=== PATIENT | male | born 1930 | race Caucasian/White ===

== ENCOUNTER 2017-04-26 20:08 | Inpatient (IN) | payer OTHER ==
[~2017-04-26] VITALS: Ht 182.9 cm; Wt 120.4 kg
[2017-04-26] MEDS ORDERED: GLIP5TAB3 PO (20:28)
[2017-04-26] MEDS ORDERED: SODIUM CHLORIDE 0.9% 1000ML 1,000 ML IV STA (20:28)
[2017-04-26] MEDS ORDERED: ACET-1311 PO (20:37)
[2017-04-26] MEDS ORDERED: LEVO1TAB33 PO (20:37)
[2017-04-26] MEDS ORDERED: SODIENE PR (20:37)
[2017-04-26] MEDS ORDERED: GLGKIT IM (20:37)
[2017-04-26] MEDS ORDERED: FURO-85 PO (20:37)
[2017-04-26] MEDS ORDERED: MOMLX PO (20:37)
[2017-04-26] MEDS ORDERED: FLM4 PO (20:37)
[2017-04-26] MEDS ORDERED: CARB25TA16 PO (20:37)
[2017-04-26] MEDS ORDERED: IPRASOL4 INH (20:37)
[2017-04-26] MEDS ORDERED: SIMV40TA2 PO (20:37)
[2017-04-26] MEDS ORDERED: OXYC-57 PO (20:37)
[2017-04-26] MEDS ORDERED: NVLG SQ (20:37)
--- NOTE | 2017-04-26 20:41 | DIAGNOSTIC IMAGING REPORT ---
CHEST ONE VIEW PORTABLE CLINICAL HISTORY: Sepsis COMPARISON STUDY: No previous studies for comparison. FINDINGS: The heart is enlarged. There is no overt failure. Increased basal markings are likely atelectatic. There is no lobar consolidation. There is no significant pleural fluid[ IMPRESSION: 1. Cardiomegaly 2. No evidence of failure 3. Bibasilar opacities likely atelectatic Electronically signed by: Moreno Huerta M.D. 04/26/2017 8:40 PM Dictated Date/Time: 04/26/2017 8:39 PM
[2017-04-26] MEDS ORDERED: PIPERACILLIN/TAZOBACTAM 4.5 GM/100ML D5W IV STA (20:50)
[2017-04-26] MEDS ORDERED: LEVAQUIN 750MG / 150ML D5W IV STA (20:50)
--- NOTE | 2017-04-26 20:54 | DIAGNOSTIC IMAGING REPORT ---
CT HEAD WITHOUT CONTRAST (CT) CLINICAL HISTORY: Acute change in mental status COMPARISON STUDY: No previous studies for comparison. TECHNIQUE: Axial CT of the brain is performed from the vertex to the skull base. IV contrast was not administered for this examination. CT DOSE: 5007.82 mGy.cm FINDINGS: No intra or extra-axial mass lesions are visualized. There is no CT evidence of acute cortical infarction. There is no evidence of midline shift. There is no acute hemorrhage. No calvarial fractures are visualized. There are minor white matter hypodensities likely on a small vessel basis. There is no evidence of pathologic ventricular dilatation. There is no evidence of acute sinusitis IMPRESSION: No acute intracranial findings Electronically signed by: Moreno Huerta M.D. 04/26/2017 8:53 PM Dictated Date/Time: 04/26/2017 8:52 PM
--- NOTE | 2017-04-26 21:04 | DIAGNOSTIC IMAGING REPORT ---
CT SCAN OF THE ABDOMEN AND PELVIS WITHOUT CONTRAST CLINICAL HISTORY: renal failure CHANGE IN MENTAL STATUS. PAIN. COMPARISON STUDY: No previous studies for comparison. TECHNIQUE: CT scan of the abdomen and pelvis was performed from the lung bases to the proximal femurs. Images are reviewed in the axial, sagittal, and coronal planes. IV contrast was not administered for this examination. CT DOSE: FINDINGS: Lower chest: There is respiratory motion artifact. There are bibasal airspace opacities, likely atelectatic although an inflammatory process could appear similar. Liver: The unenhanced liver is normal in size, contour, and attenuation. There is no intrahepatic biliary ductal dilatation. Gallbladder: Unremarkable. Spleen: Not visualized and presumed surgically absent Pancreas: Unremarkable. Adrenal glands: Unremarkable. Kidneys: The left kidney appears absent. There are tubular structures present within the left renal fossa. There is extensive right-sided perinephric stranding. There are multiple right renal cysts measuring up to 6.5 cm. There is right-sided hydronephrosis and hydroureter. There is right perinephric edema. No renal calculi are visualized. Bowel: There are no transition zones to indicate bowel obstruction. There is a left inguinal hernia containing colon. There is a supraumbilical ventral hernia containing a portion of transverse colon. Superior to this is a fat-containing ventral hernia. There is also an umbilical hernia containing a small portion of bowel. There is no acute diverticulitis. There is no evidence of acute appendicitis. Peritoneum: There is no intraperitoneal free air or abdominal ascites. Vasculature: The abdominal aorta is normal in course and caliber. Adenopathy: There is left para-aortic lymphadenopathy with nodes measuring up to 27 mm in diameter. There is also left common iliac adenopathy. Pelvic viscera: The bladder is moderately distended. The prostate is enlarged measuring 7 cm. Skeletal structures: There are advanced degenerative changes present within the spine. There are old rib fractures. IMPRESSION: 1. Bibasal airspace opacities, atelectatic versus inflammatory 2. Absent spleen and left kidney 3. Right-sided hydronephrosis. Right-sided hydroureter. Marked right-sided perinephric and periureteral stranding. 4. No renal, ureteral, or bladder calculi identified 5. Bladder distention. Marked prostate enlargement 6. Retroperitoneal lymphadenopathy 7. Multiple right renal cysts 8. Moderate to large left inguinal hernia containing colon. 9. Bowel containing ventral hernia. 10. No evidence of bowel obstruction. No evidence of free air 11. No evidence of acute diverticulitis. No evidence of acute appendicitis. Electronically signed by: Moreno Huerta M.D. 04/26/2017 9:03 PM Dictated Date/Time: 04/26/2017 8:53 PM
[2017-04-26 21:28] LABS: VEN BLD GAS O2 SATURATION < 60.0 %; VEN BLOOD GAS BASE EXCESS -2.2 mmol/L; VENOUS BLOOD GAS PCO2 48 mmHg (38.0-50.0); VENOUS BLOOD GAS PO2 30 mmHg
[2017-04-26 21:32] LABS: BASO % 0.3 %; BASO ABS # 0.04 K/uL (0-0.2); COMPLETE YES; EOS % 3.9 %; IG% 0.7 %; LYMPH % 15.7 %; LYMPH ABS # 2.49 K/uL (1.2-3.4); MEAN CORPUSCULAR HEMOGLOBIN 33.7 pg (25-34); MEAN CORPUSCULAR HGB CONC 33.7 g/dl (32-36); MEAN PLATELET VOLUME 9.7 fL (7.4-10.4); MONO % 13.8 %; NEUT % 65.6 %; PLATELET COUNT 520 K/uL (130-400); WHITE BLOOD COUNT 15.82 K/uL (4.8-10.8)
[2017-04-26 21:44] LABS: URINE APPEARANCE TURBID (CLEAR); URINE BILIRUBIN NEG (NEG); URINE COLOR YELLOW; URINE EPITHELIAL CELL AUTO >30 /lpf (0-5); URINE NITRITE NEG (NEG); UROBILINOGEN NEG (NEG); ZZURINE CULT IF INDIC CATH YES
[2017-04-26 21:54] LABS: CALCIUM 8.6 mg/dl (8.5-10.1)
[2017-04-26 21:55] LABS: MANUAL MICROSCOPIC REQUIRED? NO; REVIEW REQ? YES
[2017-04-26 22:02] LABS: ALB/GLOB RATIO 0.4 (0.9-2); ALKALINE PHOSPHATASE 213 U/L (45-117); ALT/SGPT 9 U/L (12-78); AST/SGOT 28 U/L (15-37); BLOOD UREA NITROGEN 90 mg/dl (7-18); BUN/CREATININE RATIO 9.5 (10-20); CARBON DIOXIDE 24 mmol/L (21-32); CHLORIDE 101 mmol/L (98-107); GLUCOSE 125 mg/dl (70-99); MAGNESIUM 3.2 mg/dl (1.8-2.4); PHOSPHORUS 7.7 mg/dl (2.5-4.9); POTASSIUM 5.3 mmol/L (3.5-5.1); SODIUM 136 mmol/L (136-145)
[2017-04-26 22:13] LABS: URINE PATH CASTS 0-3 GRANULAR CASTS /lpf (0)
--- NOTE | 2017-04-26 22:13 | EMERGENCY ROOM VISIT NOTE ---
History Report prepared by Evangelista: Tomy Calderon Under the Supervision of: Dr. Reilly Alfonso D.O. First contact with patient: 20:10 Stated Complaint: KIDNEY FAILURE History of Present Illness The patient is a 87 year old male who presents to the Emergency Room by EMS with complaints of an altered mental status beginning today. He is a resident at [facility]. He had a chest x-ray today which showed pneumonia. He also notes that he has a broken rib. The patient also had blood work drawn today which showed kidney failure. Per EMS, the patient is oriented, but falls asleep very easily. The patient denies any nausea, chest pain, abdominal pain, or SOB. HPI limited secondary to altered mental status. Source of History: patient, EMS History Limited By: AMS Onset: Today Quality: other (altered mental status) Associated Symptoms: No chest pain, No SOB, No nausea, No abdominal pain Review of Systems ROS limited secondary to altered mental status. Past Medical & Surgical Medical Problems: (1) Aortic stenosis (2) ARF (acute renal failure) (3) CAD (coronary artery disease) (4) Diabetes (5) Heart failure (6) Major depressive disorder (7) Myocardial infarction (8) Paraplegia (9) Parkinson disease (10) Urinary retention Family History Unobtainable secondary to altered mental status. Social History Housing Status: assisted living ([facility]) Current/Historical Medications Scheduled Carbidopa/Levodopa (Sinemet Cr 25MG/100MG), 0.5 TAB PO BID Furosemide (Lasix), 20 MG PO BID Glipizide (Glucotrol), 5 MG PO DAILY Insulin Aspart (Novolog), 10 UNITS SQ BID Levofloxacin (Levaquin), 500 MG PO DAILY Simvastatin (Zocor), 40 MG PO QPM Tamsulosin HCl (Tamsulosin HCl), 0.4 MG PO DAILY Scheduled PRN Acetaminophen (Tylenol), 650 MG PO Q6 PRN for Pain Glucagon (Glucagon Emergency Kit), 1 DOSE IM DIRECTED PRN for HYPOGLYCEMIA PROTOCOL Ipratropium-Albuterol (Duoneb), 1 TREATMENT INH Q6 PRN for Shortness of Breath Magnesium Hydroxide (Milk of Magnesia), 30 ML PO DIRECTED PRN for Constipation Oxycodone/Acetaminophen 5MG/325MG (Percocet 5MG/325MG), 1 TABLET PO Q6H PRN for Pain Sodium Phosphate/Biphosphate (Fleet Enema), 1 EA SD DAILY PRN for Constipation Allergies Coded Allergies: No Known Allergies (Unverified , 04/26/17) Physical Exam Vital Signs Date Time Temp Pulse Resp B/P (MAP) Pulse Ox O2 Delivery O2 Flow Rate FiO2 04/26/17 22:26 95 Nasal Cannula 4.0 04/26/17 22:08 82 22 95 04/26/17 22:01 146/75 04/26/17 21:38 78 22 90 04/26/17 21:08 78 22 93 04/26/17 21:01 91/72 04/26/17 20:56 81 04/26/17 20:54 116/67 04/26/17 20:29 36.4 75 20 117/76 92 Nasal Cannula 4.0 04/26/17 20:29 92 Nasal Cannula 4.0 Physical Exam GENERAL: Patient is listless and slow to respond to questions. Answers questions appropriately and follows commands slowly. EYES: Bilateral conjunctival injection with thin exudate noted. PERRL. EARS, NOSE, MOUTH AND THROAT: The nose is without any evidence of any deformity. Mucous membranes are dry tongue is midline NECK: The neck is nontender and supple. RESPIRATORY: Shallow respirations noted. Poor air movement noted throughout. Expiratory wheezing in both upper lung dukes. CARDIOVASCULAR: Distant but regular rate and rhythm noted to auscultation. No definite murmur appreciated to auscultation. GASTROINTESTINAL: The abdomen is mildly distended but soft. No specific tenderness, guarding or rigidity. BACK: No midline tenderness or or step-off noted range of motion in flexion extension as well as rotation no signs of muscle spasm noted MUSCULOSKELETAL/EXTREMITIES: There is no evidence of gross deformity full range of motion is noted in the hips and shoulders. Pedal edema bilaterally. SKIN: There is no obvious evidence of any rash. There are no petechiae, pallor or cyanosis noted. NEUROLOGIC: Patient is oriented to person, place, but not time or situation. Medical Decision & Procedures ER Provider Diagnostic Interpretation: Radiology results as stated below per my review and radiologist interpretation: CT HEAD WITHOUT CONTRAST (CT) FINDINGS: No intra or extra-axial mass lesions are visualized. There is no CT evidence of acute cortical infarction. There is no evidence of midline shift. There is no acute hemorrhage. No calvarial fractures are visualized. There are minor white matter hypodensities likely on a small vessel basis. There is no evidence of pathologic ventricular dilatation. There is no evidence of acute sinusitis IMPRESSION: No acute intracranial findings Electronically signed by: Moreno Huerta M.D. CT SCAN OF THE ABDOMEN AND PELVIS WITHOUT CONTRAST FINDINGS: Lower chest: There is respiratory motion artifact. There are bibasal airspace opacities, likely atelectatic although an inflammatory process could appear similar. Liver: The unenhanced liver is normal in size, contour, and attenuation. There is no intrahepatic biliary ductal dilatation. Gallbladder: Unremarkable. Spleen: Not visualized and presumed surgically absent Pancreas: Unremarkable. Adrenal glands: Unremarkable. Kidneys: The left kidney appears absent. There are tubular structures present within the left renal fossa. There is extensive right-sided perinephric stranding. There are multiple right renal cysts measuring up to 6.5 cm. There is right-sided hydronephrosis and hydroureter. There is right perinephric edema. No renal calculi are visualized. Bowel: There are no transition zones to indicate bowel obstruction. There is a left inguinal hernia containing colon. There is a supraumbilical ventral hernia containing a portion of transverse colon. Superior to this is a fat-containing ventral hernia. There is also an umbilical hernia containing a small portion of bowel. There is no acute diverticulitis. There is no evidence of acute appendicitis. Peritoneum: There is no intraperitoneal free air or abdominal ascites. Vasculature: The abdominal aorta is normal in course and caliber. Adenopathy: There is left para-aortic lymphadenopathy with nodes measuring up to 27 mm in diameter. There is also left common iliac adenopathy. Pelvic viscera: The bladder is moderately distended. The prostate is enlarged measuring 7 cm. Skeletal structures: There are advanced degenerative changes present within the spine. There are old rib fractures. IMPRESSION: 1. Bibasal airspace opacities, atelectatic versus inflammatory 2. Absent spleen and left kidney 3. Right-sided hydronephrosis. Right-sided hydroureter. Marked right-sided perinephric and periureteral stranding. 4. No renal, ureteral, or bladder calculi identified 5. Bladder distention. Marked prostate enlargement 6. Retroperitoneal lymphadenopathy 7. Multiple right renal cysts 8. Moderate to large left inguinal hernia containing colon. 9. Bowel containing ventral hernia. 10. No evidence of bowel obstruction. No evidence of free air 11. No evidence of acute diverticulitis. No evidence of acute appendicitis. Electronically signed by: Moreno Huerta M.D. CHEST ONE VIEW PORTABLE FINDINGS: The heart is enlarged. There is no overt failure. Increased basal markings are likely atelectatic. There is no lobar consolidation. There is no significant pleural fluid[ IMPRESSION: 1. Cardiomegaly 2. No evidence of failure 3. Bibasilar opacities likely atelectatic Electronically signed by: Moreno Huerta M.D. Laboratory Results 04/26/17 21:00 Red Blood Count 3.50, Mean Corpuscular Volume 100.0, Mean Corpuscular Hemoglobin 33.7, Mean Corpuscular Hemoglobin Concent 33.7, Mean Platelet Volume 9.7, Neutrophils (%) (Auto) 65.6, Lymphocytes (%) (Auto) 15.7, Monocytes (%) ( Auto) 13.8, Eosinophils (%) (Auto) 3.9, Basophils (%) (Auto) 0.3, Neutrophils # (Auto) 10.38, Lymphocytes # (Auto) 2.49, Monocytes # (Auto) 2.18, Eosinophils # (Auto) 0.62, Basophils # (Auto) 0.04 Test 04/26/17 00:00 04/26/17 20:17 04/26/17 21:00 04/26/17 21:05 Urine Opiates Screen NEG (NEG) Urine Methadone, Qualitative NEG (NEG) Urine Barbiturates NEG (NEG) Urine Phencyclidine (PCP) Level NEG (NEG) Ur Amphetamine/Methamphetamine NEG (NEG) MDMA (Ecstasy) Screen POS (NEG) Urine Benzodiazepines Screen NEG (NEG) Urine Cocaine Metabolite NEG (NEG) Urine Marijuana (THC) NEG (NEG) Bedside Glucose 168 mg/dl (70-99) White Blood Count 15.82 K/uL (4.8-10.8) Red Blood Count 3.50 M/uL (4.7-6.1) Hemoglobin 11.8 g/dL (14.0-18.0) Hematocrit 35.0 % (42-52) Mean Corpuscular Volume 100.0 fL (80-100) Mean Corpuscular Hemoglobin 33.7 pg (25-34) Mean Corpuscular Hemoglobin Concent 33.7 g/dl (32-36) Platelet Count 520 K/uL (130-400) Mean Platelet Volume 9.7 fL (7.4-10.4) Neutrophils (%) (Auto) 65.6 % Lymphocytes (%) (Auto) 15.7 % Monocytes (%) (Auto) 13.8 % Eosinophils (%) (Auto) 3.9 % Basophils (%) (Auto) 0.3 % Neutrophils # (Auto) 10.38 K/uL (1.4-6.5) Lymphocytes # (Auto) 2.49 K/uL (1.2-3.4) Monocytes # (Auto) 2.18 K/uL (0.11-0.59) Eosinophils # (Auto) 0.62 K/uL (0-0.5) Basophils # (Auto) 0.04 K/uL (0-0.2) RDW Standard Deviation 50.2 fL (36.4-46.3) RDW Coefficient of Variation 13.8 % (11.5-14.5) Immature Granulocyte % (Auto) 0.7 % Immature Granulocyte # (Auto) 0.11 K/uL (0.00-0.02) Erythrocyte Sedimentation Rate > 90 mm/hr (0-14) Est Creatinine Clear Calc Drug Dose 7.9 ml/min Phosphorus Level 7.7 mg/dl (2.5-4.9) Magnesium Level 3.2 mg/dl (1.8-2.4) Total Bilirubin 0.4 mg/dl (0.2-1) Aspartate Amino Transf (AST/SGOT) 28 U/L (15-37) Alanine Aminotransferase (ALT/SGPT) 9 U/L (12-78) Alkaline Phosphatase 213 U/L (45-117) Total Creatine Kinase 127 U/L (39-308) Creatine Kinase MB 2.6 ng/ml (0.5-3.6) Creatine Kinase MB Ratio 2.0 (0-3.0) Troponin I < 0.015 ng/ml (0-0.045) C-Reactive Protein 21.00 mg/dl (0-0.29) Pro-B-Type Natriuretic Peptide 1269 pg/ml (0-1800) Total Protein 7.4 gm/dl (6.4-8.2) Albumin 2.1 gm/dl (3.4-5.0) Globulin 5.3 gm/dl (2.5-4.0) Albumin/Globulin Ratio 0.4 (0.9-2) Lipase 81 U/L (73-393) Urine Color YELLOW Urine Appearance TURBID (CLEAR) Urine pH 5.0 (4.5-7.5) Urine Specific [place] 1.020 (1.000-1.030) Urine Protein 3+ (NEG) Urine Glucose (UA) NEG (NEG) Urine Ketones NEG (NEG) Urine Occult Blood 2+ (NEG) Urine Nitrite NEG (NEG) Urine Bilirubin NEG (NEG) Urine Urobilinogen NEG (NEG) Urine Leukocyte Esterase TRACE (NEG) Urine WBC (Auto) 5-10 /hpf (0-5) Urine RBC (Auto) 5-10 /hpf (0-4) Urine Hyaline Casts (Auto) 1-5 /lpf (0-5) Urine Epithelial Cells (Auto) >30 /lpf (0-5) Urine Bacteria (Auto) NEG (NEG) Urine Renal Epithelial Cells 0-5 /lpf (0-5) Urine Pathogenic Casts 0-3 GRANULAR CASTS /lpf (0) Urine Yeast (Auto) (NONE PRSENT) Test 04/26/17 21:08 04/26/17 21:14 04/26/17 21:52 Bedside Lactic Acid Venous 1.84 mmol/L (0.90-1.70) Venous Blood pH 7.32 (7.36-7.41) Venous Blood Partial Pressure CO2 48 mmHg (38.0-50.0) Venous Blood Partial Pressure O2 30 mmHg Venous Blood HCO3 24 mmol/L Venous Blood Oxygen Saturation < 60.0 % Venous Blood Base Excess -2.2 mmol/L Prothrombin Time 38.8 SECONDS (9.0-12.0) Prothromb Time International Ratio 3.4 (0.9-1.1) Activated Partial Thromboplast Time 162.0 SECONDS (21.0-31.0) Partial Thromboplastin Ratio 6.2 Ammonia 17.0 umol/L (11-32) Laboratory results per my review. Medications Administered Medications (Trade) Dose Ordered Sig/Yoan Route Start Time Stop Time Status Last Admin Dose Admin Sodium Chloride 1,000 ml @ 999 mls/hr Q1H1M STAT IV 04/26/17 20:28 04/26/17 21:28 DC 6/21/17 21:18 999 MLS/HR Piperacillin Sod/ Tazobactam Sod (Zosyn Iv) 4.5 gm NOW STAT IV 04/26/17 20:50 04/26/17 20:52 DC 04/26/17 21:18 4.5 GM Levofloxacin (Levaquin / D5W) 750 mg NOW STAT IV 04/26/17 20:50 04/26/17 20:52 DC 04/26/17 21:18 750 MG ECG Indication: altered mental status Rate (beats per minute): 76 Rhythm: normal sinus Findings: RBBB, other (No PVC. ) Comparison ECG Date: May 19, 2016 Change: Changes are new. ED Course 2009: The patient was evaluated in room A9. A complete history and physical examination were performed. 2027: Ordered NSS 1,000 ml @ 999 mls/hr IV 2042: I reassessed the patient. His son has arrived. He explained that the patient received his chest x-ray and laboratory work at [place], and was transferred to the [facility], but then asked to be discharged. The patient returned to [facility], upon which his symptoms began worsening. 2049: Ordered Zosyn 4.5 gm IV, Levaquin / D5w 750 mg IV. 2199: Upon reevaluation, the patient is resting comfortably. I discussed results and treatment plan with him and his family. They verbalize agreement and understanding. I spoke with Dr. Wilks of the [facility]. The patient will be evaluated for further management and care. Medical Decision Differential diagnosis: Etiologies such as metabolic, infection, hypoglycemia, electrolyte abnormalities , cardiac sources, intracerebral event, toxicologic, neurologic, as well as others were entertained. Blood pressure screening: Patient was found to have normal blood pressure on screening and does not require follow-up. Medication Reconciliation: I attest that I have personally reviewed the patient' s current medications list. The patient is an 87-year-old male who presented to the emergency department from [facility] for an evaluation of abnormal labs. The patient was recently admitted to [facility] last Monday and his had a decline in his mental status ever since that time. The patient started at [facility] and was transferred to [facility] for renal failure. At that time he did not wish to have dialysis. I discussed his laboratory radiographic studies with his son. At this time the patient appears to be in urinary retention causing obstructive uropathy. He has only one kidney. He was treated with a Kaba catheter as well as IV antibiotics in the emergency department. The patient was also treated with IV fluids. I discussed his case with the on-call [facility] hospitalist. They've agreed to evaluate the patient in the emergency department for further management and disposition. The patient's potassium level improved with IV fluids. His EKG did show a new right bundle-branch block pattern but it did not look like a classic dysrhythmia associated with hyperkalemia so only IV fluids were given to treat the patient's renal failure at this time. Discussing further management with the family members it sounds as though the patient would not wish to have dialysis. It sounds as though the patient would not want to be intubated as well so IV fluids were given in a nonaggressive fashion to try to not have the patient go into pulmonary edema. The patient was evaluated multiple times. Consults Time Called: [id number] Consulting Physician: Dr. Wilks -[facility] Returned Call: [phone] I discussed the patient's case with Dr. Wilks. The patient will be evaluated for further management. Impression Primary Impression: Acute renal failure Additional Impressions: Altered mental status Obstructive uropathy Hydronephrosis UTI (urinary tract infection) Hypoxia Critical Care I have personally spent greater than 35 minutes of critical care time in the direct management of this patient. This includes bedside care, interpretation of diagnostic studies, and testing, discussion with consultants, patient, and family members, and other required patient management activities. This 35 minutes is in excess of all separately billable procedures. Scribe Attestation The scribe's documentation has been prepared under my direction and personally reviewed by me in its entirety. I confirm that the note above accurately reflects all work, treatment, procedures, and medical decision making performed by me. Departure Information Dispostion Being Evaluated By Hospitalist Problem Qualifiers Primary Impression: Acute renal failure Acute renal failure type: unspecified Qualified Codes: N17.9 - Acute kidney failure, unspecified Additional Impressions: Altered mental status Altered mental status type: unspecified Qualified Codes: R41.82 - Altered mental status, unspecified Hydronephrosis Hydronephrosis type: unspecified Qualified Codes: N13.30 - Unspecified hydronephrosis UTI (urinary tract infection) Urinary tract infection type: site unspecified Hematuria presence: with hematuria Qualified Codes: N39.0 - Urinary tract infection, site not specified ; R31.9 - Hematuria, unspecified
[2017-04-26] MEDS ORDERED: POLYETHYLENE (MIRALAX) 17 GM PACK PO PRN (22:15)
[2017-04-26] MEDS ORDERED: ALBUT/IPRATROP 3MG/0.5MG NEB 3 ML VIAL INH PRN (22:15)
[2017-04-26] MEDS ORDERED: SODIUM CHLORIDE 0.9% 1000ML 1,000 ML IV SCH (22:15)
[2017-04-26] MEDS ORDERED: OXYCODONE HCL IR 5 MG TAB (IMMEDIATE RELEASE) PO PRN (22:15)
[2017-04-26] MEDS ORDERED: ACETAMINOPHEN 325 MG TAB PO PRN (22:15)
[2017-04-26 22:26] VITALS: O2SAT 95; BMI 38.0
[2017-04-26 22:35] LABS: INR 3.4 (0.9-1.1); PARTIAL THROMBOPLASTIN RATIO 6.2; PROTHROMBIN TIME (PATIENT) 38.8 SECONDS (9.0-12.0)
[2017-04-26 22:36] LABS: BENZODIAZEPINE, URINE NEG (NEG); COCAINE,URINE NEG (NEG); PHENCYCLIDINE, URINE NEG (NEG)
[2017-04-26 23:20] VITALS: BP 133/70; PULSE 88; TEMP 37; O2SAT 93
[2017-04-27] VITALS (9 sets, daily range): BP systolic 116–139; BP diastolic 62–82; PULSE 82–93; TEMP 36.5–37.6; O2SAT 91–96
--- NOTE | 2017-04-27 00:02 | History and Physical ---
History & Physical Date & Time of Service: Apr 26, 2017 at 23:04 Chief Complaint: Kidney Failure Primary Care Physician: Olga Valentin PA-C History of Present Illness Source: family, hospital records, residential, other 87 y/o M Hx Parkinson's, CKD, CHF, CAD, dementia, splenectomy, paraplegia, morbid obesity, aortic stenosis. Pt was recently admitted to [facility] due to a fall , rib fracture, UTI and acute on chronic RF. He was then transferred to [facility] for rehab. He presents today due to increasing confusion, seemingly labored breathing and oliguria. On arrival to the ER a bladder scan revealed [address] abdomen was notable for R hydronephrosis, hydroureter, perinephric and periureteral stranding and possibly b/l lower lobe infiltrates. Labs are notable for leukocytosis and a creatinine > 9.0. He is unable to voice any complaints or contribute to the HPI. His son's are at bedside to provide the above information and have confirmed that the pt is exhibiting functional decline. the pt is DNR status and family are not presently interested in pursuing dialysis if needed. 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 11) Morbid obesity 12) Rib fractures 13) CKD 14) CAD/[place] 15) Chronic anemia Family History Noncontributory due to pt age Social History Care dependent - recently - nonsmoker - does not drink alcohol - former chairez Smoking Status: Never Smoker Allergies Coded Allergies: No Known Allergies (Unverified , 04/26/17) Home Medications Scheduled Carbidopa/Levodopa (Sinemet Cr 25MG/100MG), 0.5 TAB PO BID Furosemide (Lasix), 20 MG PO BID Glipizide (Glucotrol), 5 MG PO DAILY Insulin Aspart (Novolog), 10 UNITS SQ BID Levofloxacin (Levaquin), 500 MG PO DAILY Simvastatin (Zocor), 40 MG PO QPM Tamsulosin HCl (Tamsulosin HCl), 0.4 MG PO DAILY Scheduled PRN Acetaminophen (Tylenol), 650 MG PO Q6 PRN for Pain Glucagon (Glucagon Emergency Kit), 1 DOSE IM DIRECTED PRN for HYPOGLYCEMIA PROTOCOL Ipratropium-Albuterol (Duoneb), 1 TREATMENT INH Q6 PRN for Shortness of Breath Magnesium Hydroxide (Milk of Magnesia), 30 ML PO DIRECTED PRN for Constipation Oxycodone/Acetaminophen 5MG/325MG (Percocet 5MG/325MG), 1 TABLET PO Q6H PRN for Pain Sodium Phosphate/Biphosphate (Fleet Enema), 1 EA ND DAILY PRN for Constipation Review of Systems Cannot obtain Physical Exam Vital Signs Date Time Temp Pulse Resp B/P (MAP) Pulse Ox O2 Delivery O2 Flow Rate FiO2 04/26/17 22:26 95 Nasal Cannula 4.0 04/26/17 22:08 82 22 95 04/26/17 22:01 146/75 04/26/17 21:38 78 22 90 04/26/17 21:08 78 22 93 04/26/17 21:01 91/72 04/26/17 20:56 81 04/26/17 20:54 116/67 04/26/17 20:29 36.4 75 20 117/76 92 Nasal Cannula 4.0 04/26/17 20:29 92 Nasal Cannula 4.0 General Appearance: + pertinent finding (Confused, elderly, overweight male - labored breathing - appears uncomfortable) Head: normocephalic, atraumatic Eyes: normal inspection, PERRL, EOMI ENT: normal ENT inspection, pharynx normal, + pertinent finding (Dry mucosal membranes) Neck: supple, + JVD Respiratory/Chest: + decreased breath sounds, + accessory muscle use, + pertinent finding (limmited exam due to shallow resps and habitus - tenderness over chest wall) Cardiovascular: regular rate, rhythm, + systolic murmur Abdomen/GI: normal bowel sounds, + tenderness (diffuse abdominal tenderness with mild distention and a palpable central hernia) Back: + left CVA tenderness, + right CVA tenderness Extremities/Musculoskelatal: no calf tenderness, + pedal edema Neurologic/Psych: + disoriented, + pertinent finding (No overt deficits - cannot comply with exam) Skin: no rash, + pallor Diagnostics Laboratory Results Results Past 24 Hours Test 04/26/17 00:00 04/26/17 20:17 04/26/17 21:00 04/26/17 21:05 Range/Units Urine Opiates Screen NEG NEG Urine Methadone, Qualitative NEG NEG Urine Barbiturates NEG NEG Urine Phencyclidine (PCP) Level NEG NEG Ur Amphetamine/Methamphetamine NEG NEG MDMA (Ecstasy) Screen POS NEG Urine Benzodiazepines Screen NEG NEG Urine Cocaine Metabolite NEG NEG Urine Marijuana (THC) NEG NEG Bedside Glucose 168 70-99 mg/dl White Blood Count 15.82 4.8-10.8 K/uL Red Blood Count 3.50 4.7-6.1 M/uL Hemoglobin 11.8 14.0-18.0 g/dL Hematocrit 35.0 42-52 % Mean Corpuscular Volume 100.0 80-100 fL Mean Corpuscular Hemoglobin 33.7 25-34 pg Mean Corpuscular Hemoglobin Concent 33.7 32-36 g/dl Platelet Count 520 130-400 K/uL Mean Platelet Volume 9.7 7.4-10.4 fL Neutrophils (%) (Auto) 65.6 % Lymphocytes (%) (Auto) 15.7 % Monocytes (%) (Auto) 13.8 % Eosinophils (%) (Auto) 3.9 % Basophils (%) (Auto) 0.3 % Neutrophils # (Auto) 10.38 1.4-6.5 K/uL Lymphocytes # (Auto) 2.49 1.2-3.4 K/uL Monocytes # (Auto) 2.18 0.11-0.59 K/uL Eosinophils # (Auto) 0.62 0-0.5 K/uL Basophils # (Auto) 0.04 0-0.2 K/uL RDW Standard Deviation 50.2 36.4-46.3 fL RDW Coefficient of Variation 13.8 11.5-14.5 % Immature Granulocyte % (Auto) 0.7 % Immature Granulocyte # (Auto) 0.11 0.00-0.02 K/uL Erythrocyte Sedimentation Rate > 90 0-14 mm/hr Sodium Level 136 136-145 mmol/L Potassium Level 5.3 3.5-5.1 mmol/L Chloride Level 101 98-107 mmol/L Carbon Dioxide Level 24 21-32 mmol/L Anion Gap 11.0 3-11 mmol/L Blood Urea Nitrogen 90 7-18 mg/dl Creatinine 9.40 0.60-1.40 mg/dl Est Creatinine Clear Calc Drug Dose 7.9 ml/min Estimated GFR () 5.3 Estimated GFR (Non- 4.6 BUN/Creatinine Ratio 9.5 10-20 Random Glucose 125 70-99 mg/dl Calcium Level 8.6 8.5-10.1 mg/dl Phosphorus Level 7.7 2.5-4.9 mg/dl Magnesium Level 3.2 1.8-2.4 mg/dl Total Bilirubin 0.4 0.2-1 mg/dl Aspartate Amino Transf (AST/SGOT) 28 15-37 U/L Alanine Aminotransferase (ALT/SGPT) 9 12-78 U/L Alkaline Phosphatase 213 45-117 U/L Total Creatine Kinase 127 39-308 U/L Creatine Kinase MB 2.6 0.5-3.6 ng/ml Creatine Kinase MB Ratio 2.0 0-3.0 Troponin I < 0.015 0-0.045 ng/ml C-Reactive Protein 21.00 0-0.29 mg/dl Pro-B-Type Natriuretic Peptide 1269 0-1800 pg/ml Total Protein 7.4 6.4-8.2 gm/dl Albumin 2.1 3.4-5.0 gm/dl Globulin 5.3 2.5-4.0 gm/dl Albumin/Globulin Ratio 0.4 0.9-2 Lipase 81 73-393 U/L Urine Color YELLOW Urine Appearance TURBID CLEAR Urine pH 5.0 4.5-7.5 Urine Specific Cal[place]oun 1.020 1.000-1.030 Urine Protein 3+ NEG Urine Glucose (UA) NEG NEG Urine Ketones NEG NEG Urine Occult Blood 2+ NEG Urine Nitrite NEG NEG Urine Bilirubin NEG NEG Urine Urobilinogen NEG NEG Urine Leukocyte Esterase TRACE NEG Urine WBC (Auto) 5-10 0-5 /hpf Urine RBC (Auto) 5-10 0-4 /hpf Urine Hyaline Casts (Auto) 1-5 0-5 /lpf Urine Epithelial Cells (Auto) >30 0-5 /lpf Urine Bacteria (Auto) NEG NEG Urine Renal Epithelial Cells 0-5 0-5 /lpf Urine Pathogenic Casts 0-3 GRANULAR CASTS 0 /lpf Urine Yeast (Auto) NONE PRSENT Test 04/26/17 21:08 04/26/17 21:14 04/26/17 21:52 04/26/17 23:00 Range/Units Bedside Lactic Acid Venous 1.84 0.90-1.70 mmol/L Venous Blood pH 7.32 7.36-7.41 Venous Blood Partial Pressure CO2 48 38.0-50.0 mmHg Venous Blood Partial Pressure O2 30 mmHg Venous Blood HCO3 24 mmol/L Venous Blood Oxygen Saturation < 60.0 % Venous Blood Base Excess -2.2 mmol/L Prothrombin Time 38.8 9.0-12.0 SECONDS Prothromb Time International Ratio 3.4 0.9-1.1 Activated Partial Thromboplast Time 162.0 21.0-31.0 SECONDS Partial Thromboplastin Ratio 6.2 Ammonia 17.0 11-32 umol/L Microbiology Results 04/26/17 Blood Culture, Received Pending 04/26/17 Blood Culture, Received Pending 04/26/17 Urine Culture, Received Pending Diagnostic Radiology IMPRESSION: 1. Bibasal airspace opacities, atelectatic versus inflammatory 2. Absent spleen and left kidney 3. Right-sided hydronephrosis. Right-sided hydroureter. Marked right-sided perinephric and periureteral stranding. 4. No renal, ureteral, or bladder calculi identified 5. Bladder distention. Marked prostate enlargement 6. Retroperitoneal lymphadenopathy 7. Multiple right renal cysts 8. Moderate to large left inguinal hernia containing colon. 9. Bowel containing ventral hernia. 10. No evidence of bowel obstruction. No evidence of free air 11. No evidence of acute diverticulitis. No evidence of acute appendicitis. EKG Sinus , 80 BPM, RBBB - no evidence of acute ischemia Impression Assessment and Plan 87 y/o M Hx Parkinson's, CKD, CHF, CAD, dementia, splenectomy, paraplegia, morbid obesity, aortic stenosis, DM. Pt was recently admitted to [facility] due to a fall, rib fracture, UTI and acute on chronic RF. He was then transferred to [facility] for rehab. He presents today due to increasing confusion, seemingly labored breathing and oliguria. On arrival to the ER a bladder scan revealed [address] abdomen was notable for R hydronephrosis, hydroureter, perinephric and periureteral stranding and possibly b/l lower lobe infiltrates. Labs are notable for leukocytosis and a creatinine > 9.0. He is unable to voice any complaints or contribute to the HPI. His son's are at bedside to provide the above information and have confirmed that the pt is exhibiting functional decline. 1) AMS - multifactorial - due to likely infection, underlying dementia, ARF/ uremia/metabolic encephalopathy- addressed individually 2) ARF - metabolic encephalopathy - acute on chronic failure due to obstructive uropathy. Pt has R hydronephrosis and hydroureter. Kaba placed, pt receiving gentle hydration although it is unclear if he will be able to tolerate sufficient fluid resuscitation without volume overload. I have made the family aware of the above. They do not wish to pursue dialysis so that we will continue with IVF at a low rate and recheck the pts BMP/ electrolytes periodically. If he becomes excessively SOB we can employ breathing treatments, NTG and Lasix and if ineffective, I have discussed the use of narcotics with family to treat the pt symptomatically. 3) UTI - possible PNM - as the pt is asplenic and was being treated with Levaquin for a UTI at [facility], we will start Zosyn and Zithromax pending culture results. He does not meet septic criteria currently. 4) CHF - we do not have a current echo - as above this creates some difficulty with fluid resuscitation which the family are aware of. His daily Lasix is presently held. He does not normally take a B thomas or an YANETH. 5) CAD - No evidence of ACS - cont Statin and ASA 6) DM - placed on SS DNR/DNI - no dialysis - Heparin prophylaxis Total time for this admit including review of labs, meds, outside records, EKG - discussion with pt's family and ER attending - 50 min Advanced Directives Existing Living Will: Yes Existing Power of Senior Sales Administrator: Yes (ROXANNE SON ) VTE Prophylaxis VTE Risk Assessment Done? Y/N: Yes Risk Level: Moderate
[2017-04-27] MEDS ORDERED: ALBUTEROL 0.083% NEBU SOLN 3 ML VIAL INH PRN (00:15)
[2017-04-27 00:25] LABS: BUN/CREATININE RATIO 10.8 (10-20); CALCIUM 8.2 mg/dl (8.5-10.1); CREATININE 8.1 mg/dl (0.60-1.40); POTASSIUM 5.2 mmol/L (3.5-5.1)
[2017-04-27] MEDS ORDERED: GLUCOSE 10 TABS/TUBE PO PRN (01:00)
[2017-04-27] MEDS ORDERED: GLUCAGON FOR INJ 1 MG VIAL SQ PRN (01:00)
[2017-04-27] MEDS ORDERED: GLUCOSE 40% GEL 15 GM TUBE PO PRN (01:00)
[2017-04-27] MEDS ORDERED: DEXTROSE 50% 50 ML SYR IV PRN (01:00)
[2017-04-27] MEDS: ALBUT/IPRATROP 3MG/0.5MG NEB 3 ML VIAL INH SCH ×4 (02:08→19:10)
[2017-04-27] MEDS ORDERED: PIPERACILL/TAZOBAC CONSULT ACTIVE PRN (02:30)
[2017-04-27] MEDS ORDERED: Azithromycin: PHARMACY CONSULT IN PROGRESS PRN (02:30)
[2017-04-27] MEDS: PIPERACILL/TAZOBAC IV 4.5 GM in DEXTROSE 5% 100ML 100 ML IV SCH ×2 (04:18→16:21)
[2017-04-27] MEDS ORDERED: HEPARIN SOD 5000 UNIT/0.5 ML CARP SQ SCH (06:00)
[2017-04-27 06:13] LABS: HEMATOCRIT 32.2 % (42-52); MEAN CELL VOLUME 99.4 fL (80-100); MEAN CORPUSCULAR HEMOGLOBIN 33.3 pg (25-34); MEAN CORPUSCULAR HGB CONC 33.5 g/dl (32-36); MEAN PLATELET VOLUME 9.2 fL (7.4-10.4); PLATELET COUNT 531 K/uL (130-400); RED BLOOD COUNT 3.24 M/uL (4.7-6.1); WHITE BLOOD COUNT 15.14 K/uL (4.8-10.8)
[2017-04-27 07:04] LABS: BUN/CREATININE RATIO 11.9 (10-20); CALCIUM 8.5 mg/dl (8.5-10.1); CREATININE 6.7 mg/dl (0.60-1.40); MAGNESIUM 2.9 mg/dl (1.8-2.4); POTASSIUM 4.9 mmol/L (3.5-5.1)
[2017-04-27 07:28] LABS: PHOSPHORUS 5.9 mg/dl (2.5-4.9)
[2017-04-27] MEDS: INSULIN ASPART 100 UNITS/ML 3 ML PEN SC SCH ×4 (07:33→20:38)
[2017-04-27] MEDS: TAMSULOSIN HCL 0.4 MG CAP PO SCH (07:44)
[2017-04-27] MEDS: CARBIDOPA/LEVODOPA 25/100MG TAB PO SCH ×2 (07:45→20:33)
[2017-04-27] MEDS: AZITHROMYCIN IV 500 MG in DEXTROSE 5% 250ML 250 ML IV SCH (07:46)
[2017-04-27 09:39] LABS: INR 1.3 (0.9-1.1); PARTIAL THROMBOPLASTIN RATIO 1.3; PROTHROMBIN TIME (PATIENT) 14.5 SECONDS (9.0-12.0)
[2017-04-27] MEDS ORDERED: NURSING VERBAL MED ORDER ONE (11:30)
[2017-04-27] MEDS ORDERED: SODIUM CHLORIDE 0.9% 1000ML 500 ML IV SCH (11:45)
[2017-04-27] MEDS: MoRPHine SULFATE 4 MG/ML 1 ML CARP\\VIAL IV PRN (13:59)
[2017-04-27] MEDS: SIMVASTATIN 40 MG TAB PO SCH (20:32)
--- NOTE | 2017-04-27 23:00 | Progress Note ---
Subjective Date of Service: Apr 27, 2017. Subjective Pt evaluation today including: conversation w/ patient, conversation w/ family (son, daughter in law at bedside), physical exam, chart review, lab review, review of studies (CT abd/pelvis, cxr), review of inpatient medication list Pain: chest wall from recent rib fractures; back PO Intake: poor Voiding: antonio catheter in place tele stable overnight saw the patient twice today - first was on AM rounds he was very drowsy and could not tell me where he was but was able to state he was at "[facility]" recently could not give me details mainly complained of pain in his ribs 2nd visit was late today when his family was at bedside again he was drowsy and intermittently coherent, trying to give some information family reports he was hospitalized at [facility] for 1 week recently, then released to [facility] he did NOT have a antonio catheter at time of d/c from [facility] was treated there for cellulitis of his legs daughter also reports that the pt's this past week and is tomorrow Problem List Medical Problems: (1) Acute renal failure Status: Acute (2) Altered mental status Status: Acute (3) Hydronephrosis Status: Acute (4) Hypoxia Status: Acute (5) Obstructive uropathy Status: Acute (6) UTI (urinary tract infection) Status: Acute Review of Systems cannot obtain ROS reliably due to altered mental status Objective Vital Signs Date Time Temp Pulse Resp B/P (MAP) Pulse Ox O2 Delivery O2 Flow Rate FiO2 04/27/17 20:00 Nasal Cannula 5.0 04/27/17 19:37 37.6 93 29 139/65 (89) 94 Nasal Cannula 6.0 04/27/17 19:11 88 20 95 Nasal Cannula 6.0 04/27/17 16:10 Nasal Cannula 5.0 04/27/17 15:19 37.5 88 24 129/82 (98) 91 Nasal Cannula 6.0 04/27/17 12:05 Oxymask 5.0 04/27/17 11:49 37.0 82 20 126/62 (83) 94 04/27/17 08:20 Oxymask 5.0 04/27/17 08:17 36.9 82 20 121/73 (89) 93 04/27/17 04:00 Oxymask 5.0 04/27/17 03:52 36.5 84 22 131/72 (91) 96 Oxymask 5.0 04/27/17 01:04 95 Oxymask 5.0 04/26/17 23:59 Oxymask 6.0 04/26/17 23:20 37.0 88 24 133/70 (91) 93 Oxymask 6.0 Physical Exam General Appearance: no apparent distress, + obese ENT: + pertinent finding (MM dry) Neck: no JVD Respiratory/Chest: no respiratory distress, no accessory muscle use, + decreased breath sounds, + rales (fine, bases) Cardiovascular: regular rate, rhythm, no gallop, + systolic murmur (2/6 RUSB) Abdomen: normal bowel sounds, non tender, soft, no organomegaly, + hernia ( reducible ) Extremities: no pedal edema Neurologic/Psychiatric: + disoriented, + pertinent finding (drowsy) Comments: rectal - prostate markedly enlarged, swollen/boggy and tender; firm nodule, left lower pole; no gross blood or fecal impaction; hemorrhoid present at 6 o' clock Laboratory Results Last 24 Hours Test 04/26/17 23:45 04/27/17 00:18 04/27/17 05:28 04/27/17 06:45 Sodium Level 139 mmol/L 141 mmol/L Potassium Level 5.2 mmol/L 4.9 mmol/L Chloride Level 105 mmol/L 107 mmol/L Carbon Dioxide Level 25 mmol/L 24 mmol/L Anion Gap 9.0 mmol/L 10.0 mmol/L Blood Urea Nitrogen 88 mg/dl 80 mg/dl Creatinine 8.10 mg/dl 6.70 mg/dl Est Creatinine Clear Calc Drug Dose 9.0 ml/min 10.9 ml/min Estimated GFR () 6.3 7.9 Estimated GFR (Non- 5.4 6.9 BUN/Creatinine Ratio 10.8 11.9 Random Glucose 124 mg/dl 85 mg/dl Calcium Level 8.2 mg/dl 8.5 mg/dl Bedside Glucose 114 mg/dl 89 mg/dl White Blood Count 15.14 K/uL Red Blood Count 3.24 M/uL Hemoglobin 10.8 g/dL Hematocrit 32.2 % Mean Corpuscular Volume 99.4 fL Mean Corpuscular Hemoglobin 33.3 pg Mean Corpuscular Hemoglobin Concent 33.5 g/dl RDW Standard Deviation 49.7 fL RDW Coefficient of Variation 13.7 % Platelet Count 531 K/uL Mean Platelet Volume 9.2 fL Phosphorus Level 5.9 mg/dl Magnesium Level 2.9 mg/dl Test 04/27/17 09:24 04/27/17 11:22 04/27/17 16:12 04/27/17 20:15 Prothrombin Time 14.5 SECONDS Prothromb Time International Ratio 1.3 Activated Partial Thromboplast Time 33.6 SECONDS Partial Thromboplastin Ratio 1.3 Bedside Glucose 107 mg/dl 129 mg/dl 174 mg/dl Assessment and Plan 87yo male: 1. acute renal failure - severe - suspect post-obstruction given the hydronephrosis and hydroureter, bladder distension, and prostate enlargement along with improved UOP/Creatinine with placement of antonio catheter. I anticipate his creatinine will continue to improve with judicious use of IVF and antonio usage. BMP in am. Hold any nephrotic agent. 2. severe BPH with prostatitis - cont antonio, flomax, and treat prostatitis with antibiotics. Await urine culture result. 3. prostate nodule, lymphadenopathy on CT - concerning for prostate ca. Check PSA in am. 4. metabolic encephalopathy - 2nd to #1, prostatitis, +/- pneumonia, etc. Supportive care. Treat underlying infections. 5. question of pneumonia - if truly present this would be considered health- care associated given his recent hospital stay. Follow blood cx's. Cont antibiotics as ordered. 6. aortic stenosis - by exam is at least mild-moderate. No evidence of CHF. 7. CAD - no ischemic symptoms at this time. 8. T2DM - due to inconsistent eating defer on long-acting insulin; use correction insulin for now. 9. h/o CHF - unknown EF. Judicious use of fluids in the setting of #1. 10. parkinson's disease - continue sinemet. 11. solitary kidney status s/p left nephrectomy - need to ask family about reason for nephrectomy. 12. splenectomy status. 13. morbid obesity - BMI nearly 37 14. recent rib fractures s/p fall - lidoderm patches if needed. 15. anemia - due to underlying CKD? other? 16. abnormal coags - unclear etiology; simply repeat to see if this was lab error. 17. elevated sed rate - 2nd to prostatitis? pneumonia? other? 18. DVT proph - add heparin BID in am. family updated at bedside time 40 minutes Continued [facility] stay due to: inadequate po fluid intake, voiding difficulties, ambulation difficulties, multiple IV medications needed, home environment unsafe for pt Discharge planning: [facility] facility
[2017-04-28] VITALS (13 sets, daily range): BP systolic 110–136; BP diastolic 53–78; PULSE 73–97; TEMP 36.5–37.5; O2SAT 73–97
[2017-04-28] MEDS: ALBUT/IPRATROP 3MG/0.5MG NEB 3 ML VIAL INH SCH ×4 (01:56→19:00)
[2017-04-28] MEDS: PIPERACILL/TAZOBAC IV 4.5 GM in DEXTROSE 5% 100ML 100 ML IV SCH ×2 (03:05→17:13)
[2017-04-28] MEDS: MoRPHine SULFATE 4 MG/ML 1 ML CARP\\VIAL IV PRN ×2 (03:06→08:16)
[2017-04-28 05:58] LABS: HEMATOCRIT 33.6 % (42-52); MEAN CELL VOLUME 100.9 fL (80-100); MEAN CORPUSCULAR HGB CONC 32.7 g/dl (32-36); MEAN PLATELET VOLUME 9.1 fL (7.4-10.4); PLATELET COUNT 513 K/uL (130-400); RED BLOOD COUNT 3.33 M/uL (4.7-6.1); WHITE BLOOD COUNT 13.97 K/uL (4.8-10.8)
[2017-04-28 06:38] LABS: BUN/CREATININE RATIO 17.5 (10-20); CALCIUM 8.8 mg/dl (8.5-10.1); CREATININE 3.6 mg/dl (0.60-1.40); POTASSIUM 4.5 mmol/L (3.5-5.1)
[2017-04-28] MEDS: INSULIN ASPART 100 UNITS/ML 3 ML PEN SC SCH ×4 (07:00→21:46)
[2017-04-28] MEDS: AZITHROMYCIN IV 500 MG in DEXTROSE 5% 250ML 250 ML IV SCH (08:11)
[2017-04-28] MEDS: CARBIDOPA/LEVODOPA 25/100MG TAB PO SCH ×2 (08:12→21:44)
[2017-04-28] MEDS: TAMSULOSIN HCL 0.4 MG CAP PO SCH (08:12)
--- NOTE | 2017-04-28 15:32 | DIAGNOSTIC IMAGING REPORT ---
IMPRESSION: The patient presented for nuclear bone scan on 04/28/2017. The patient was injected with 25.7 mCi of technetium 99m radiolabeled MDP. The patient returned for bone scan imaging at 3 hours and was unable to tolerate lying down for the procedure. No imaging was acquired. Electronically signed by: Humberto Faria M.D. 04/28/2017 3:31 PM Dictated Date/Time: 04/28/2017 3:29 PM
[2017-04-28] MEDS: SIMVASTATIN 40 MG TAB PO SCH (21:44)
[2017-04-28] MEDS: DEXAMETHASONE 4 MG TAB PO SCH (21:44)
[2017-04-29] VITALS (10 sets, daily range): BP systolic 115–135; BP diastolic 49–77; PULSE 66–89; TEMP 36.5–37.1; O2SAT 91–96
[2017-04-29] MEDS: ALBUT/IPRATROP 3MG/0.5MG NEB 3 ML VIAL INH SCH ×4 (01:50→19:17)
[2017-04-29] MEDS: PIPERACILL/TAZOBAC IV 4.5 GM in DEXTROSE 5% 100ML 100 ML IV SCH ×2 (04:00→16:42)
--- NOTE | 2017-04-29 05:00 | Progress Note ---
Subjective Date of Service: late entry for visit on Apr 28, 2017. Subjective Pt evaluation today including: conversation w/ patient, conversation w/ family (son, by phone), physical exam, chart review, lab review, review of inpatient medication list Pain: right shoulder, back PO Intake: poor Voiding: antonio catheter in place tele stable overnight continues with intermittent confusion cannot lay flat due to pain and orthopnea still coughing his lethargy makes it difficult to complete a ROS Problem List Medical Problems: (1) Acute renal failure Status: Acute (2) Altered mental status Status: Acute (3) Hydronephrosis Status: Acute (4) Hypoxia Status: Acute (5) Obstructive uropathy Status: Acute (6) UTI (urinary tract infection) Status: Acute Objective Vital Signs Date Time Temp Pulse Resp B/P (MAP) Pulse Ox O2 Delivery O2 Flow Rate FiO2 04/29/17 04:00 Nasal Cannula 5.0 Humidified Oxygen 04/29/17 03:44 37.0 74 20 135/77 (96) 95 Nasal Cannula 5.0 04/29/17 01:50 74 20 93 Nasal Cannula 5.0 04/28/17 23:59 Nasal Cannula 5.0 Humidified Oxygen 04/28/17 23:50 37.5 86 23 132/69 (90) 93 Nasal Cannula 5.0 04/28/17 20:00 Nasal Cannula 4.0 Humidified Oxygen 04/28/17 19:26 37.1 96 24 136/68 (90) 91 Nasal Cannula 4.0 04/28/17 19:00 97 20 87 Nasal Cannula 4.0 04/28/17 16:00 97 Nasal Cannula 4.0 04/28/17 15:45 36.9 89 18 117/66 (83) 92 Nasal Cannula 4.0 04/28/17 14:26 79 20 80 Room Air 04/28/17 13:15 73 95 04/28/17 12:00 97 Nasal Cannula 4.0 04/28/17 12:00 37.0 86 22 110/53 (72) 92 Nasal Cannula 3.0 04/28/17 08:00 97 Nasal Cannula 4.0 04/28/17 07:35 73 20 95 Nasal Cannula 3.0 04/28/17 07:06 36.5 74 20 120/78 (92) 92 Nasal Cannula 4.0 Physical Exam General Appearance: no apparent distress, + obese, + pertinent finding (mild confused, drowsy) ENT: + pertinent finding (MM dry) Neck: no JVD Respiratory/Chest: no respiratory distress, no accessory muscle use, + decreased breath sounds (bases), + rales (bases), + wheezing Cardiovascular: regular rate, rhythm, no gallop, + systolic murmur (2/6 RUSB) Abdomen: normal bowel sounds, non tender, soft, no organomegaly Extremities: + pedal edema (trace b/l) Neurologic/Psychiatric: + disoriented Laboratory Results Last 24 Hours Test 04/28/17 05:46 04/28/17 06:50 04/28/17 11:14 04/28/17 16:05 White Blood Count 13.97 K/uL Red Blood Count 3.33 M/uL Hemoglobin 11.0 g/dL Hematocrit 33.6 % Mean Corpuscular Volume 100.9 fL Mean Corpuscular Hemoglobin 33.0 pg Mean Corpuscular Hemoglobin Concent 32.7 g/dl RDW Standard Deviation 50.9 fL RDW Coefficient of Variation 13.9 % Platelet Count 513 K/uL Mean Platelet Volume 9.1 fL Sodium Level 143 mmol/L Potassium Level 4.5 mmol/L Chloride Level 110 mmol/L Carbon Dioxide Level 25 mmol/L Anion Gap 8.0 mmol/L Blood Urea Nitrogen 63 mg/dl Creatinine 3.60 mg/dl Est Creatinine Clear Calc Drug Dose 20.3 ml/min Estimated GFR () 16.8 Estimated GFR (Non- 14.5 BUN/Creatinine Ratio 17.5 Random Glucose 118 mg/dl Calcium Level 8.8 mg/dl Prostate Specific Antigen 206.000 ng/ml Bedside Glucose 117 mg/dl 176 mg/dl 113 mg/dl Test 04/28/17 20:06 04/29/17 04:52 Bedside Glucose 199 mg/dl Assessment and Plan 87yo male: 1. acute renal failure - severe - 2nd to post-obstruction given the hydronephrosis and hydroureter, bladder distension, and prostate enlargement along with improved UOP/Creatinine with placement of antonio catheter. ARF 2nd to marked BPH. I anticipate his creatinine will continue to improve with time. Likely will need antonio at hospital discharge. BMP in am. Hold any nephrotic agent. 2. severe BPH with prostatitis - cont antonio, flomax, and treat prostatitis with antibiotics. Await urine culture result. 3. prostate nodule, lymphadenopathy on CT, markedly elevated PSA - attempted to obtain bone scan today to r/o bony mets but patient unable to tolerate test. Despite not having the test results I still suspect he has bony mets (elevated alk phos, bone pain, etc). Will obtain urology consult. 4. metabolic encephalopathy - 2nd to #1, prostatitis, +/- pneumonia, etc. Supportive care. Treat underlying infections. 5. acute hypoxic/hypercarbic resp failure with question of pneumonia - if truly present this would be considered health-care associated given his recent hospital stay. Follow blood cx's. Cont antibiotics as ordered. Repeat VBG in am. Repeat cxr in am. 6. aortic stenosis - by exam is at least mild-moderate. No evidence of CHF. 7. CAD - no ischemic symptoms at this time. 8. T2DM - due to inconsistent eating defer on long-acting insulin; use correction insulin for now. 9. h/o CHF - unknown EF. Consider echo. 10. parkinson's disease - continue sinemet. 11. solitary kidney status s/p left nephrectomy - need to ask family about reason for nephrectomy. 12. splenectomy status. 13. morbid obesity - BMI nearly 37 14. recent rib fractures s/p fall - lidoderm patches if needed. 15. anemia - due to underlying CKD? other? 16. abnormal coags - was likely lab error - repeat nearly normal and he did not have any intervention for this. 17. elevated sed rate - 2nd to prostatitis? pneumonia? other? 18. DVT proph - heparin BID. 19. b/l wheezing - start steroids. This may even help bony mets if these are present. son updated by phone will have family conference tomorrow Continued [facility] stay due to: inadequate po fluid intake, voiding difficulties, ambulation difficulties, multiple IV medications needed, home environment unsafe for pt Discharge planning: detention facility
[2017-04-29 05:51] LABS: VEN BLD GAS O2 SATURATION 87.7 %; VEN BLOOD GAS BASE EXCESS 0.7 mmol/L
[2017-04-29 06:24] LABS: BUN/CREATININE RATIO 22.7 (10-20); CALCIUM 9.2 mg/dl (8.5-10.1); CREATININE 2.1 mg/dl (0.60-1.40); POTASSIUM 5.3 mmol/L (3.5-5.1)
[2017-04-29 06:45] LABS: THYROID STIMULATING HORMONE 0.565 uIu/ml (0.300-4.500)
--- NOTE | 2017-04-29 07:06 | DIAGNOSTIC IMAGING REPORT ---
SINGLE VIEW CHEST CLINICAL HISTORY: Dyspnea. FINDINGS: An AP, portable, upright chest radiograph is compared to study dated 04/26/2017. The examination is significantly degraded by portable technique , large body habitus, patient rotation, and by the patient's head obscuring the lung apices. The heart is enlarged. There is prominence of the central pulmonary vessels. There are small pleural effusions, left larger than right with dense left basilar consolidation. Mild airspace opacities are also seen at the right lung base. No pneumothorax is seen. The skeletal structures are osteopenic. Degenerative change is noted throughout the thoracic spine. IMPRESSION: 1. Cardiomegaly with 4 months of the central pulmonary vessels. Correlate clinically for evidence of mild congestive failure. 2. Small pleural effusions, left larger than right with dense left basilar consolidation. Mild airspace opacities are also present the right lung base. This could represent atelectasis, pneumonia, and/or aspiration pneumonitis. Clinical correlation will be required. Electronically signed by: Humberto Faria M.D. 04/29/2017 7:05 AM Dictated Date/Time: 04/29/2017 7:02 AM
[2017-04-29] MEDS ORDERED: BUMETANIDE IV 1 MG in SYRINGE 0 ML IV ONE (08:15)
[2017-04-29] MEDS: AZITHROMYCIN IV 500 MG in DEXTROSE 5% 250ML 250 ML IV SCH (08:44)
[2017-04-29] MEDS: INSULIN ASPART 100 UNITS/ML 3 ML PEN SC SCH ×4 (08:52→21:04)
[2017-04-29] MEDS: DEXAMETHASONE 4 MG TAB PO SCH ×2 (09:00→20:59)
[2017-04-29] MEDS: CARBIDOPA/LEVODOPA 25/100MG TAB PO SCH ×2 (09:00→21:00)
[2017-04-29] MEDS: TAMSULOSIN HCL 0.4 MG CAP PO SCH (09:00)
[2017-04-29] MEDS ORDERED: INSULIN GLARGINE SOLOSTAR 100 UNITS/ML 3 ML PEN SC SCH (09:00)
--- NOTE | 2017-04-29 13:33 | DIAGNOSTIC IMAGING REPORT ---
RIGHT SHOULDER 2 VIEWS CLINICAL HISTORY: Right shoulder pain. Prostate cancer. FINDINGS: 2 portable views the right shoulder are obtained. No prior studies are available for comparison at the time of dictation. The skeletal structures are osteopenic. No fracture or dislocation is seen. Productive degenerative changes seen at the acromioclavicular joint. Arthritic change is also identified at the glenohumeral joint. There is evidence of calcific tendinopathy. There is no radiographic evidence of osteoblastic lesion as clinically queried. The overlying soft tissues are within normal limits. Imaged right lung parenchyma appears clear. IMPRESSION: 1. Osteopenia and arthritic change as above. No acute bony abnormality is seen in the right shoulder. 2. Calcific tendinopathy is observed. Electronically signed by: Humberto Faria M.D. 04/29/2017 1:32 PM Dictated Date/Time: 04/29/2017 1:30 PM
[2017-04-29] MEDS: SIMVASTATIN 40 MG TAB PO SCH (20:59)
[2017-04-29] MEDS ORDERED: COUGH DROP (SUGAR FREE) LOZ 24 LOZ/1 BOX ONE (23:34)
--- NOTE | 2017-04-29 23:49 | Progress Note ---
Subjective Date of Service: Apr 29, 2017. Subjective Pt evaluation today including: conversation w/ patient, conversation w/ family (pt's children), physical exam, chart review, lab review, review of studies ( shoulder x-rays, right), conversation w/ senior research consultant (urology), review of inpatient medication list Pain: neck, right shoulder; denies l-spine pain PO Intake: poor Voiding: antonio catheter in place tele stable overnight pt with eyes closed during my 2 visits with him his mental status waxes/wanes; during 2nd visit he seemed more lucid, asking questions, etc biggest complaint was that of right shoulder pain - started "when I came in" family reports that his on hospice this week they were 69 years he has been walking with a walker for several years he had been declining recommendations made by his PCP for some time PCP apparently had been doing home visits to his home ?some mild, early dementia but only over the last few months per family Problem List Medical Problems: (1) Acute renal failure Status: Acute (2) Altered mental status Status: Acute (3) Hydronephrosis Status: Acute (4) Hypoxia Status: Acute (5) Obstructive uropathy Status: Acute (6) UTI (urinary tract infection) Status: Acute Review of Systems Constitutional: + weakness, + fatigue, No fever Respiratory: + cough Cardiac: No chest pain Abdomen: No pain Objective Vital Signs Date Time Temp Pulse Resp B/P (MAP) Pulse Ox O2 Delivery O2 Flow Rate FiO2 04/29/17 20:00 Nasal Cannula 5.0 Humidified Oxygen 04/29/17 19:36 36.8 89 20 122/65 (84) 92 Nasal Cannula 5.0 04/29/17 19:18 84 20 94 Nasal Cannula 5.0 04/29/17 16:00 Nasal Cannula 5.0 Humidified Oxygen 04/29/17 15:24 36.8 73 16 115/53 (73) 91 Nasal Cannula 5.0 04/29/17 14:21 69 20 93 Nasal Cannula 5.0 04/29/17 12:03 36.5 66 17 135/71 (92) 95 Nasal Cannula 5.0 04/29/17 11:59 Nasal Cannula 5.0 Humidified Oxygen 04/29/17 08:00 Nasal Cannula 5.0 Humidified Oxygen 04/29/17 07:57 36.5 69 18 126/73 (90) 96 Nasal Cannula 5.0 04/29/17 07:06 72 20 92 Nasal Cannula 5.0 04/29/17 04:00 Nasal Cannula 5.0 Humidified Oxygen 04/29/17 03:44 37.0 74 20 135/77 (96) 95 Nasal Cannula 5.0 04/29/17 01:50 74 20 93 Nasal Cannula 5.0 04/28/17 23:59 Nasal Cannula 5.0 Humidified Oxygen 04/28/17 23:50 37.5 86 23 132/69 (90) 93 Nasal Cannula 5.0 Physical Exam General Appearance: no apparent distress, + obese, + pertinent finding (eyes closed, but will talk and answer questions) ENT: + pertinent finding (MM still dry) Neck: no JVD Respiratory/Chest: no respiratory distress, no accessory muscle use, + decreased breath sounds (bases), + wheezing Cardiovascular: regular rate, rhythm, no gallop, + systolic murmur (2-3/6 RUSB) Abdomen: normal bowel sounds, non tender, soft, no organomegaly, + hernia ( reducible - ventral) Extremities: + pedal edema Neurologic/Psychiatric: + disoriented (intermittent) Comments: right shoulder - tender over lateral aspect of the joint; any ROM - external rotation, internal rotation, etc - causes pain neck - tender over paraspinal areas Laboratory Results Last 24 Hours Test 04/29/17 05:35 04/29/17 06:45 04/29/17 11:11 04/29/17 16:14 Venous Blood pH 7.38 Venous Blood Partial Pressure CO2 46 mmHg Venous Blood Partial Pressure O2 57 mmHg Venous Blood HCO3 26 mmol/L Venous Blood Oxygen Saturation 87.7 % Venous Blood Base Excess 0.7 mmol/L Sodium Level 145 mmol/L Potassium Level 5.3 mmol/L Chloride Level 112 mmol/L Carbon Dioxide Level 26 mmol/L Anion Gap 7.0 mmol/L Blood Urea Nitrogen 48 mg/dl Creatinine 2.10 mg/dl Est Creatinine Clear Calc Drug Dose 34.5 ml/min Estimated GFR () 32.3 Estimated GFR (Non- 27.9 BUN/Creatinine Ratio 22.7 Random Glucose 192 mg/dl Calcium Level 9.2 mg/dl Vitamin B12 Level 1088 pg/mL Thyroid Stimulating Hormone (TSH) 0.565 uIu/ml Bedside Glucose 193 mg/dl 207 mg/dl 191 mg/dl Test 04/29/17 20:29 Bedside Glucose 216 mg/dl Assessment and Plan 87yo male: 1. acute renal failure - severe - 2nd to post-obstruction given the hydronephrosis and hydroureter, bladder distension, and prostate enlargement along with improved UOP/Creatinine with placement of antonio catheter at time admission. Creatinine continues to improved; now down to about 2 (was nearly 10). Will need antonio at hospital discharge. BMP in am. 2. severe BPH with prostatitis - cont antonio, flomax, and treat prostatitis with antibiotics. Urine cx negative. 3. prostate nodule, lymphadenopathy on CT, markedly elevated PSA - attempted to obtain bone scan to r/o bony mets but patient unable to tolerate test. Despite not having the test results I still suspect he has bony mets (elevated alk phos, bone pain, etc). Will obtain urology consult. 4. metabolic encephalopathy - 2nd to #1, prostatitis, +/- pneumonia, etc. Seems to be slowly improving. Supportive care. Treat underlying infections. 5. acute hypoxic/hypercarbic resp failure with question of pneumonia - if truly present this would be considered health-care associated given his recent hospital stay. Follow blood cx's. Cont antibiotics as ordered. 6. aortic stenosis - by exam is at least mild-moderate. 7. CAD - no ischemic symptoms at this time. 8. T2DM - add lantus 10 units daily. 9. h/o CHF - unknown EF. With acute CHF. CXR with pulmonary edema. Bumex x 1. Obtain records from [facility] to see if echo has been done there. 10. parkinson's disease - continue sinemet. 11. 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 13. morbid obesity - BMI 36. 14. recent rib fractures s/p fall - lidoderm patches if needed. 15. anemia - due to underlying CKD? other? 16. abnormal coags - was likely lab error - repeat nearly normal and he did not have any intervention for this. Repeat INR in am for stability. 17. elevated sed rate - likely 2nd to prostatitis and pneumonia. 18. DVT proph - heparin BID. 19. b/l wheezing - cont steroids. This may even help bony mets if these are present. wheezing may be cardiac in nature (pulmonary edema) vs reactive from his pneumonia. 20. moderate-severe protein calorie malnutrition - add boost. MVI. 60 minute family conference held today reviewed all available information to date including his ARF, elevated PSA, MARIYA findings, concern of prostate ca, possibilities for plan of care, etc my sense speaking with his family and reviewing his living will is that he likely would not want aggressive care if his health continues to decline await urology consult focus on pain control Continued [facility] stay due to: inadequate po fluid intake, inadequate oral pain control, voiding difficulties, ambulation difficulties, multiple IV medications needed, home environment unsafe for pt Discharge planning: half-way facility
[2017-04-30] VITALS (10 sets, daily range): BP systolic 123–163; BP diastolic 71–85; PULSE 67–77; TEMP 36.7–37; O2SAT 77–98
[2017-04-30] MEDS: ALBUT/IPRATROP 3MG/0.5MG NEB 3 ML VIAL INH SCH ×4 (01:35→19:36)
[2017-04-30] MEDS: PIPERACILL/TAZOBAC IV 4.5 GM in DEXTROSE 5% 100ML 100 ML IV SCH ×3 (04:00→22:12)
[2017-04-30 06:20] LABS: INR 1.4 (0.9-1.1); PROTHROMBIN TIME (PATIENT) 15.2 SECONDS (9.0-12.0)
[2017-04-30 06:38] LABS: BUN/CREATININE RATIO 26.4 (10-20); CREATININE 1.7 mg/dl (0.60-1.40); MAGNESIUM 2.1 mg/dl (1.8-2.4); POTASSIUM 4.9 mmol/L (3.5-5.1)
[2017-04-30] MEDS ORDERED: BOOST VANILLA PO SCH ×2 (07:30)
[2017-04-30] MEDS: TAMSULOSIN HCL 0.4 MG CAP PO SCH (07:39)
[2017-04-30] MEDS: DEXAMETHASONE 4 MG TAB PO SCH (07:39)
[2017-04-30] MEDS: CEROVITE ADV FORMULA TAB PO SCH (07:39)
[2017-04-30] MEDS: AZITHROMYCIN IV 500 MG in DEXTROSE 5% 250ML 250 ML IV SCH (07:39)
[2017-04-30] MEDS: CARBIDOPA/LEVODOPA 25/100MG TAB PO SCH ×2 (07:40→21:07)
[2017-04-30] MEDS: INSULIN ASPART 100 UNITS/ML 3 ML PEN SC SCH ×4 (07:45→21:09)
[2017-04-30] MEDS ORDERED: BUMETANIDE IV 1 MG in SYRINGE 0 ML IV ONE (08:15)
[2017-04-30] MEDS: PHYTONADIONE 5 MG TAB PO SCH (08:33)
[2017-04-30] MEDS ORDERED: INSULIN GLARGINE SOLOSTAR 100 UNITS/ML 3 ML PEN SC SCH (09:00)
--- NOTE | 2017-04-30 09:39 | DIAGNOSTIC IMAGING REPORT ---
VENOUS DOPPLER RIGHT ARM UPPER EXTREMITY VENOUS DOPPLER HISTORY: Pain. Edema. eval for DVT right arm Right COMPARISON STUDY: None. FINDINGS: The internal jugular vein is patent. There is normal flow within the subclavian vein. There is normal flow and compressibility within the left axillary, basilic, brachial, radial, ulnar, and visualized cephalic veins. IMPRESSION: No DVT within the upper extremity. Electronically signed by: Matti Dennis M.D. 04/30/2017 9:38 AM Dictated Date/Time: 04/30/2017 9:37 AM
[2017-04-30] MEDS ORDERED: PANTOprazole SOD 40 MG TAB PO STA (10:23)
[2017-04-30] MEDS: DICLOFENAC SOD 1% GEL 100 GM TUBE EXT SCH ×4 (10:30→21:06)
--- NOTE | 2017-04-30 14:48 | Urology Consultation ---
History General Date of Service: Apr 30, 2017. Primary Care Physician: Olga Valentin PA-C Pt seen a urologist before?: No History of Present Illness 87 y/o male with mult medical comorbids presented from rehab with consfusion, SOB, and oliguria. Upon arrival to the ED, he was found to have 1600cc in his bladder. CT scan showed Right [place], perinephric stranding, and a distended bladder. His Cr was initially checked to be >9, but since the antonio has been placed, it has come back down and is now 1.7. The urine is clear. No clots. The CT scan showed that he has an abscent left kidney. This was lost during a trauma accident with a bull. During his work-up, a PSA was drawn. This returned at 206. His alk phos is 213. He states that he doesn't recall if he has ever had a PSA drain in the past. A MARIYA revealed a nodular prostate, also concerning for malignancy. The patient is not interested in having any aggressive therapy for a potential cancer. His recently while on hospice. Imaging Imaging: CT Laboratory Labs were reviewed and are within normal limits unless listed below. Labs are available in the chart and at [facility] Problem List Medical Problems: (1) Acute renal failure Status: Acute (2) Altered mental status Status: Acute (3) Hydronephrosis Status: Acute (4) Hypoxia Status: Acute (5) Obstructive uropathy Status: Acute (6) UTI (urinary tract infection) Status: Acute Past History congestive heart failure, coronary artery disease, dementia, other Past Surgical History: nephrectomy, splenectomy, other Social History Smoking: no current use Alcohol: no current use Housing status: lives with family Allergies Coded Allergies: No Known Allergies (Unverified , 04/26/17) Medications Home Medications: Home Meds and Scripts Medications Dose Route/Sig Max Daily Dose Days Date Category Dose Instructions Percocet 5MG/325MG (Oxycodone/Acetaminophen) Tab 1 Tablet PO Q6H PRN 04/26/17 Reported PAIN Milk of Magnesia (Magnesium Hydroxide) 30 Ml Susp 30 Ml PO DIRECTED PRN 04/26/17 Reported Glucagon Emergency Kit (Glucagon) 1 Mg Kit 1 Dose IM DIRECTED PRN 04/26/17 Reported Fleet Enema (Sodium Phosphate/Biphosphate) Cherry [address] DAILY PRN 04/26/17 Reported Duoneb (Ipratropium-Albuterol) 3 Ml Nebu 1 Treatment INH Q6 PRN 04/26/17 Reported Tylenol (Acetaminophen) 325 Mg Tab 650 Mg PO Q6 PRN 04/26/17 Reported Novolog (Insulin Aspart) 100 Units/Ml Inj 10 Units SQ BID 04/26/17 Reported Lasix (Furosemide) 20 Mg Tab 20 Mg PO BID 04/26/17 Reported Sinemet Cr 25MG/100MG (Carbidopa/Levodopa) Tabcr 0.5 Tab PO BID 04/26/17 Reported Tamsulosin HCl 0.4 Mg Cap 0.4 Mg PO DAILY 04/26/17 Reported Zocor (Simvastatin) 40 Mg Tab 40 Mg PO QPM 04/26/17 Reported Levaquin (Levofloxacin) 500 Mg Tab 500 Mg PO DAILY 04/26/17 Reported Glucotrol (Glipizide) 5 Mg Tab 5 Mg PO DAILY 04/26/17 Reported Inpatient Medications: Current Inpatient Medications Medications (Trade) Dose Ordered Sig/Yoan Route Start Time Stop Time Status Last Admin Dose Admin Carbidopa/Levodopa (Sinemet 25/ 100MG Tab) 0.5 tab BID PO 04/27/17 09:00 05/27/17 08:59 04/30/17 07:40 0.5 TAB Simvastatin (Zocor Tab) 40 mg QPM PO 04/27/17 21:00 05/27/17 20:59 04/29/17 20:59 40 MG Tamsulosin HCl (Flomax Cap) 0.4 mg DAILY PO 04/27/17 09:00 05/27/17 08:59 04/30/17 07:39 0.4 MG Oxycodone HCl (Roxicodone Immediate Rel Tab) 5 mg Q4H PRN PO 04/26/17 22:15 05/10/17 22:14 Acetaminophen (Tylenol Tab) 650 mg Q4H PRN PO 04/26/17 22:15 05/26/17 22:14 Ondansetron HCl (Zofran Inj) 4 mg Q6H PRN IV 04/26/17 22:15 05/26/17 22:14 Polyethylene (Miralax Powder Packet) 17 gm DAILY PRN PO 04/26/17 22:15 05/26/17 22:14 04/30/17 09:07 17 GM Albuterol/ Ipratropium (Duoneb) 1 ml Q6R INH 04/27/17 03:00 05/27/17 02:59 04/30/17 13:50 1 ML Insulin Aspart (novoLOG ASPART) SLIDING SCALE G... ACHS SC 04/27/17 07:00 05/27/17 06:59 04/30/17 12:37 5 UNITS Azithromycin 500 mg/Dextrose 255 ml @ 125 mls/hr Q24H IV 04/27/17 08:00 05/04/17 07:59 04/30/17 07:39 125 MLS/HR Albuterol Sulfate (Ventolin 0.083% 2.5MG/3ML Neb) 2.5 mg Q4H PRN INH 04/27/17 00:15 05/27/17 00:14 Morphine Sulfate (MoRPHine SULFATE INJ) 4 mg Q3H PRN IV 04/27/17 00:15 05/11/17 00:14 04/28/17 08:16 4 MG Glucose (Glucose 40% Gel) 15-30 GRAMS 15 GRAMS... UD PRN PO 04/27/17 01:00 05/27/17 00:59 Glucose (Glucose Chew Tab) 4-8 Tablets 4 Tabl... UD PRN PO 04/27/17 01:00 05/27/17 00:59 Dextrose (Dextrose 50% 50ML Syringe) 25-50ML OF 50% DW IV FOR... UD PRN IV 04/27/17 01:00 05/27/17 00:59 Glucagon (Glucagon Inj) 1 mg UD PRN SQ 04/27/17 01:00 05/27/17 00:59 Piperacillin Sod/ Tazobactam Sod (Consult) 1 ea UD PRN N/A 04/27/17 02:30 05/27/17 02:29 Miscellaneous Information 1 ea UD PRN N/A 04/27/17 02:30 05/27/17 02:29 Multivitamins/ Minerals (Multivitamin W/ Minerals Tab) 1 tab QAM PO 04/30/17 09:00 05/30/17 08:59 04/30/17 07:39 1 TAB Dexamethasone (Decadron Tab) 4 mg DAILY PO 04/30/17 09:00 05/28/17 20:59 04/30/17 07:39 4 MG Phytonadione (Mephyton Tab) 5 mg DAILY PO 04/30/17 09:00 05/30/17 08:59 04/30/17 08:33 5 MG Pantoprazole Sodium (Protonix Tab) 40 mg QAM PO 05/01/17 09:00 05/31/17 08:59 Diclofenac Sodium (Voltaren 1% Top Gel) 1 appln QID EXT 04/30/17 10:30 05/30/17 10:29 04/30/17 13:04 1 APPLN Enteral Nutritional Formula (Boost Glucose Control) 1 can BIDM PO 04/30/17 16:45 05/30/17 16:44 Piperacillin Sod/ Tazobactam Sod 4.5 gm/Dextrose 120 ml @ 30 mls/hr Q8H IV 04/30/17 14:00 05/07/17 03:59 04/30/17 14:02 30 MLS/HR Insulin Glargine (Lantus Solostar Pen) 15 unit BID SC 04/30/17 21:00 05/29/17 08:59 UNV Review of Systems Review of Systems Constitutional: No fever Eyes: No blurred vision Endocrine: + too cold Gastrointestinal: + abdominal pain Respiratory: + shortness of breath Musculoskeletal: + joint pain Male : + problem reported All Other Systems: Reviewed and Negative Physical Exam Vital Signs: Vital Signs Past 12 Hours Date Time Temp Pulse Resp B/P (MAP) Pulse Ox O2 Delivery O2 Flow Rate FiO2 04/30/17 13:50 67 20 96 Nasal Cannula 5.0 04/30/17 12:00 Nasal Cannula 5.0 Humidified Oxygen 04/30/17 11:26 36.7 68 27 163/83 (109) 94 Nasal Cannula 5.0 04/30/17 08:00 Nasal Cannula 5.0 Humidified Oxygen 04/30/17 07:54 36.9 72 19 156/79 (104) 94 Nasal Cannula 5.0 04/30/17 06:48 67 20 91 Nasal Cannula 5.0 04/30/17 04:00 Nasal Cannula 5.0 Humidified Oxygen 04/30/17 03:40 37.0 70 18 123/71 (88) 92 Nasal Cannula 5.0 Physical Exam: General Appearance: WD/WN ENT: normal ENT inspection Neck: supple, no adenopathy Respiratory/Chest: lungs clear Cardiovascular: regular rate, rhythm, no edema Genitourinary - Male: Prostate: size (enlarged), nodules Extremities: + pedal edema Neurologic/Psychiatric: alert, oriented x 3 Skin: normal color Lymphatic: no adenopathy Assessment & Plan Assessment & Plan (1) Elevated PSA (2) Hydronephrosis Status: Acute It certainly appears that the patient likely has prostate cancer. His PSA is 206. Elevated alk phos. He has some questionable lymph nodes and bone pain. That could also be causing a certain amount of bladder outlet obstruction leading to retention, hydro, and FIOR. I had a long discussion with the patient today about the potential of him having prostate cancer and what could be done. He is not interested in doing anything aggressive which I agree with. He has too many comorbidities to entertain primary treatment with surgery as well as radiation. The most reasonable treatment option to consider would be Androgen Deprivation Therapy. This can be started now with Casodex 50mg daily. He can also continue the Flomax. After he has been on the Casodex for 2 weeks, he can transition to an injectable therapy such as Lupron or Firmagon. This can be done in the office. Depending on what agent is chosen, he may need a biospy to confirm the diagnosis. This can be done as an outpatient as well.
[2017-04-30] MEDS: BICALUTAMIDE 50 MG TAB PO SCH (17:00)
[2017-04-30] MEDS: BOOST GLUCOSE CONTROL PO SCH (17:05)
[2017-04-30] MEDS: SIMVASTATIN 40 MG TAB PO SCH (21:07)
[2017-04-30] MEDS: INSULIN GLARGINE SOLOSTAR 100 UNITS/ML 3 ML PEN SC SCH (21:08)
[2017-04-30] MEDS: ONDANSETRON INJ 2 MG/ML 2 ML VIAL IV PRN (21:18)
[2017-04-30] MEDS: HEPARIN SOD 5000 UNIT/0.5 ML CARP SQ SCH (22:00)
--- NOTE | 2017-04-30 22:09 | Progress Note ---
Subjective Date of Service: Apr 30, 2017. Subjective Pt evaluation today including: conversation w/ patient, conversation w/ family (son, Daniel, by phone), physical exam, chart review, lab review, review of studies (doppler, RIGHT ARM, neg for DVT), review of inpatient medication list Pain: neck PO Intake: poor; apparently vomited/regurgited after eating breakfast Voiding: antonio catheter in place Pt more awake/alert this am. he was working with OT upon my arrival tele normal overnight he complains of neck pain denies abd pain staff think that when he vomited today he was simply putting too much food in his mouth at once to swallow Problem List Medical Problems: (1) Acute renal failure Status: Acute (2) Altered mental status Status: Acute (3) Hydronephrosis Status: Acute (4) Hypoxia Status: Acute (5) Obstructive uropathy Status: Acute (6) UTI (urinary tract infection) Status: Acute Review of Systems Constitutional: No fever Respiratory: + dyspnea on exertion Cardiac: + orthopnea Abdomen: + vomiting, No pain Musculoskeletal: + joint pain (left knee pain, right shoulder) Objective Vital Signs Date Time Temp Pulse Resp B/P (MAP) Pulse Ox O2 Delivery O2 Flow Rate FiO2 04/30/17 19:36 72 18 96 Nasal Cannula 5.0 04/30/17 16:14 36.7 70 18 141/74 (96) 93 Nasal Cannula 5.0 04/30/17 16:00 Nasal Cannula 5.0 Humidified Oxygen 04/30/17 13:50 67 20 96 Nasal Cannula 5.0 04/30/17 12:00 Nasal Cannula 5.0 Humidified Oxygen 04/30/17 11:26 36.7 68 27 163/83 (109) 94 Nasal Cannula 5.0 04/30/17 08:00 Nasal Cannula 5.0 Humidified Oxygen 04/30/17 07:54 36.9 72 19 156/79 (104) 94 Nasal Cannula 5.0 04/30/17 06:48 67 20 91 Nasal Cannula 5.0 04/30/17 04:00 Nasal Cannula 5.0 Humidified Oxygen 04/30/17 03:40 37.0 70 18 123/71 (88) 92 Nasal Cannula 5.0 04/30/17 01:35 68 20 98 Nasal Cannula 5.0 04/30/17 00:04 Nasal Cannula 5.0 Humidified Oxygen 04/29/17 23:42 37.1 75 24 116/49 (71) 93 Nasal Cannula 5.0 Physical Exam General Appearance: no apparent distress, + obese, + pertinent finding (looks better today; more awake/alert) ENT: pharynx normal Neck: no JVD Respiratory/Chest: no respiratory distress, no accessory muscle use, + decreased breath sounds (bases), + rales (fine, bases) Cardiovascular: regular rate, rhythm, no gallop, no murmur Abdomen: normal bowel sounds, non tender, soft, no organomegaly, + hernia Extremities: + pedal edema (1+ b/l ) Neurologic/Psychiatric: alert, oriented x 3 Comments: musculo - left knee with crepitus and discomfort with passive ROM (flexion/ extension) Laboratory Results Last 24 Hours Test 04/30/17 05:31 04/30/17 07:09 04/30/17 10:57 04/30/17 16:16 Prothrombin Time 15.2 SECONDS Prothromb Time International Ratio 1.4 Sodium Level 144 mmol/L Potassium Level 4.9 mmol/L Chloride Level 108 mmol/L Carbon Dioxide Level 30 mmol/L Anion Gap 6.0 mmol/L Blood Urea Nitrogen 45 mg/dl Creatinine 1.70 mg/dl Est Creatinine Clear Calc Drug Dose 42.6 ml/min Estimated GFR () 41.7 Estimated GFR (Non- 36.0 BUN/Creatinine Ratio 26.4 Random Glucose 299 mg/dl Calcium Level 9.0 mg/dl Magnesium Level 2.1 mg/dl Bedside Glucose 272 mg/dl 315 mg/dl 281 mg/dl Test 04/30/17 20:45 Bedside Glucose 258 mg/dl Assessment and Plan 87yo male: 1. acute renal failure - severe - 2nd to post-obstruction given the hydronephrosis and hydroureter, bladder distension, and prostate enlargement along with improved UOP/Creatinine with placement of antonio catheter at time admission. Creatinine continues to improved; now down to 1.7 (was nearly 10). Will need antonio at hospital discharge. BMP in am. 2. severe BPH with prostatitis - cont antonio, flomax, and treat prostatitis with antibiotics. Urine cx negative. 3. prostate nodule, lymphadenopathy on CT, markedly elevated PSA - attempted to obtain bone scan to r/o bony mets but patient was unable to tolerate test ( couldn't lie flat due to pain and was having orthopnea last week). Despite not having the test results I still suspect he has bony mets (elevated alk phos, bone pain, etc). Urology consult performed today; appreciate their opinion. At this time they are recommending casodex 50mg once daily. This would be followed by lupron injections starting in the office in a few weeks. May need biopsy. Consider retrying the bone scan next 48 hours if patient can tolerate the test. 4. metabolic encephalopathy - 2nd to #1, prostatitis, +/- pneumonia, etc. IMPROVED. 5. acute hypoxic/hypercarbic resp failure with question of pneumonia - if truly present this would be considered health-care associated given his recent hospital stay at [facility] [place]. Follow blood cx's. Cont antibiotics as ordered. Day #4 of zosyn/zithromax. 6. aortic stenosis - by exam is at least mild-moderate. 7. CAD - no ischemic symptoms at this time. 8. T2DM - uncontrolled, due to steroids. Increase lantus. Adjust novolog correction. 9. acute CHF - unknown EF. s/p bumex yesterday with good diuresis. Repeat bumex again today. Obtain records from [facility] [place] to see if echo has been done there. 10. parkinson's disease - continue sinemet. 11. 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 13. morbid obesity - BMI 36. 14. recent rib fractures s/p fall - lidoderm patches if needed. 15. anemia - due to underlying CKD? other? 16. abnormal coags - INR continues to be high, but no known liver disease. Vitamin K deficiency? will give vitamin K daily and trend the INR to see if any improvement. 17. elevated sed rate - likely 2nd to prostatitis and pneumonia. 18. DVT proph - heparin TID. 19. b/l wheezing - improved. Was likely due to pulmonary edema. reasonable to cont steroids. This may even help bony mets if these are present. 20. moderate-severe protein calorie malnutrition - added boost. MVI. 21. constipation - add miralax and senna. son, Daniel, updated by phone today d/c tele - ok to transfer to med/surg dispo planning - back to [facility] at d/c DNR; needs POLST Continued [facility] stay due to: inadequate po fluid intake, inadequate oral pain control, voiding difficulties, ambulation difficulties, multiple IV medications needed, home environment unsafe for pt Discharge planning: intermediate facility
[2017-05-01] VITALS (8 sets, daily range): BP systolic 133–154; BP diastolic 74–81; PULSE 66–75; TEMP 36.5–36.9; O2SAT 85–98
[2017-05-01] MEDS: ALBUT/IPRATROP 3MG/0.5MG NEB 3 ML VIAL INH SCH ×4 (02:11→19:55)
[2017-05-01] MEDS: PIPERACILL/TAZOBAC IV 4.5 GM in DEXTROSE 5% 100ML 100 ML IV SCH ×3 (05:38→21:20)
[2017-05-01] MEDS: HEPARIN SOD 5000 UNIT/0.5 ML CARP SQ SCH ×3 (06:05→21:17)
[2017-05-01 06:55] LABS: INR 1.3 (0.9-1.1); PROTHROMBIN TIME (PATIENT) 13.7 SECONDS (9.0-12.0)
[2017-05-01 07:24] LABS: BUN/CREATININE RATIO 23.9 (10-20); CALCIUM 8.6 mg/dl (8.5-10.1); CREATININE 1.6 mg/dl (0.60-1.40); POTASSIUM 4.3 mmol/L (3.5-5.1)
[2017-05-01] MEDS: BOOST GLUCOSE CONTROL PO SCH ×2 (07:37→17:00)
[2017-05-01] MEDS: DICLOFENAC SOD 1% GEL 100 GM TUBE EXT SCH ×4 (07:38→21:28)
[2017-05-01] MEDS: CARBIDOPA/LEVODOPA 25/100MG TAB PO SCH ×2 (07:38→21:13)
[2017-05-01] MEDS: PHYTONADIONE 5 MG TAB PO SCH (07:39)
[2017-05-01] MEDS: TAMSULOSIN HCL 0.4 MG CAP PO SCH (07:39)
[2017-05-01] MEDS: DEXAMETHASONE 4 MG TAB PO SCH (07:40)
[2017-05-01] MEDS: CEROVITE ADV FORMULA TAB PO SCH (07:40)
[2017-05-01] MEDS: PANTOprazole SOD 40 MG TAB PO SCH (07:40)
[2017-05-01] MEDS: ONDANSETRON INJ 2 MG/ML 2 ML VIAL IV PRN (07:42)
[2017-05-01] MEDS: SENNA 8.6 MG TAB PO SCH (08:40)
[2017-05-01] MEDS: INSULIN GLARGINE SOLOSTAR 100 UNITS/ML 3 ML PEN SC SCH (08:41)
[2017-05-01] MEDS: BICALUTAMIDE 50 MG TAB PO SCH (08:41)
[2017-05-01] MEDS: INSULIN ASPART 100 UNITS/ML 3 ML PEN SC SCH ×4 (08:42→21:19)
[2017-05-01] MEDS: POLYETHYLENE (MIRALAX) 17 GM PACK PO SCH (08:42)
[2017-05-01] MEDS: AZITHROMYCIN IV 500 MG in DEXTROSE 5% 250ML 250 ML IV SCH (09:55)
--- NOTE | 2017-05-01 11:14 | DIAGNOSTIC IMAGING REPORT ---
[facility] CLINICAL HISTORY: Constipation COMPARISON STUDY: CT of the abdomen and pelvis April 26, 2017. FINDINGS: The bowel gas pattern is normal. There is a moderate amount of stool within the colon and rectum. There are left upper quadrant surgical clips. IMPRESSION: 1. No evidence for a bowel obstruction. 2. Moderate amount of stool within the colon and rectum. Electronically signed by: Jayjay Joaquin M.D. 05/01/2017 11:12 AM Dictated Date/Time: 05/01/2017 11:12 AM
--- NOTE | 2017-05-01 12:12 | Hospitalist Progress Note ---
Hospitalist Progress Note Date of Service May 01, 2017. (Gini Poole ., PA-C) Subjective Pt evaluation today including: conversation w/ patient, physical exam, chart review, lab review, review of studies, review of inpatient medication list Voiding: antonio catheter in place Patient states he is not feeling well today. SOB is improving. +N/V since yesterday AM- worse w/ eating- currently not tolerating PO intake +diffuse abdominal discomfort. +constipation- no BM in 1 week. Denies passing any gas. Patient denies any fever, chills, sweats, lightheadedness, dizziness, vision changes, CP, palpitations, edema, SOB, wheezing, cough, diarrhea, urinary symptoms, melena, numbness/tingling, weakness, muscle/joint pain, anxiety/ depression, active bleeding, or new skin discoloration/changes. (Gini Poole ., PA-C) Medications Current Inpatient Medications Medications (Trade) Dose Ordered Sig/Yoan Route Start Time Stop Time Status Last Admin Dose Admin Carbidopa/Levodopa (Sinemet 25/ 100MG Tab) 0.5 tab BID PO 04/27/17 09:00 05/27/17 08:59 05/01/17 07:38 0.5 TAB Simvastatin (Zocor Tab) 40 mg QPM PO 04/27/17 21:00 05/27/17 20:59 04/30/17 21:07 40 MG Tamsulosin HCl (Flomax Cap) 0.4 mg DAILY PO 04/27/17 09:00 05/27/17 08:59 05/01/17 07:39 0.4 MG Oxycodone HCl (Roxicodone Immediate Rel Tab) 5 mg Q4H PRN PO 04/26/17 22:15 05/10/17 22:14 Acetaminophen (Tylenol Tab) 650 mg Q4H PRN PO 04/26/17 22:15 05/26/17 22:14 Ondansetron HCl (Zofran Inj) 4 mg Q6H PRN IV 04/26/17 22:15 05/26/17 22:14 05/01/17 07:42 4 MG Albuterol/ Ipratropium (Duoneb) 1 ml Q6R INH 04/27/17 03:00 05/27/17 02:59 05/01/17 07:20 1 ML Insulin Aspart (novoLOG ASPART) SLIDING SCALE G... ACHS SC 04/27/17 07:00 05/27/17 06:59 05/01/17 08:42 5 UNITS Azithromycin 500 mg/Dextrose 255 ml @ 125 mls/hr Q24H IV 04/27/17 08:00 05/04/17 07:59 05/01/17 09:55 125 MLS/HR Albuterol Sulfate (Ventolin 0.083% 2.5MG/3ML Neb) 2.5 mg Q4H PRN INH 04/27/17 00:15 05/27/17 00:14 Morphine Sulfate (MoRPHine SULFATE INJ) 4 mg Q3H PRN IV 04/27/17 00:15 05/11/17 00:14 04/28/17 08:16 4 MG Glucose (Glucose 40% Gel) 15-30 GRAMS 15 GRAMS... UD PRN PO 04/27/17 01:00 05/27/17 00:59 Glucose (Glucose Chew Tab) 4-8 Tablets 4 Tabl... UD PRN PO 04/27/17 01:00 05/27/17 00:59 Dextrose (Dextrose 50% 50ML Syringe) 25-50ML OF 50% DW IV FOR... UD PRN IV 04/27/17 01:00 05/27/17 00:59 Glucagon (Glucagon Inj) 1 mg UD PRN SQ 04/27/17 01:00 05/27/17 00:59 Piperacillin Sod/ Tazobactam Sod (Consult) 1 ea UD PRN N/A 04/27/17 02:30 05/27/17 02:29 Miscellaneous Information 1 ea UD PRN N/A 04/27/17 02:30 05/27/17 02:29 Multivitamins/ Minerals (Multivitamin W/ Minerals Tab) 1 tab QAM PO 04/30/17 09:00 05/30/17 08:59 05/01/17 07:40 1 TAB Dexamethasone (Decadron Tab) 4 mg DAILY PO 04/30/17 09:00 05/28/17 20:59 05/01/17 07:40 4 MG Phytonadione (Mephyton Tab) 5 mg DAILY PO 04/30/17 09:00 05/30/17 08:59 05/01/17 07:39 5 MG Pantoprazole Sodium (Protonix Tab) 40 mg QAM PO 05/01/17 09:00 05/31/17 08:59 05/01/17 07:40 40 MG Diclofenac Sodium (Voltaren 1% Top Gel) 1 appln QID EXT 04/30/17 10:30 05/30/17 10:29 05/01/17 07:38 1 APPLN Enteral Nutritional Formula (Boost Glucose Control) 1 can BIDM PO 04/30/17 16:45 05/30/17 16:44 05/01/17 07:37 1 CAN Piperacillin Sod/ Tazobactam Sod 4.5 gm/Dextrose 120 ml @ 30 mls/hr Q8H IV 04/30/17 14:00 05/07/17 03:59 05/01/17 05:38 30 MLS/HR Insulin Glargine (Lantus Solostar Pen) 15 unit BID SC 04/30/17 21:00 05/29/17 08:59 05/01/17 08:41 15 UNIT Bicalutamide (Casodex Tab) 50 mg QAM PO 04/30/17 17:00 05/30/17 16:59 05/01/17 08:41 50 MG Heparin Sodium (Porcine) (Heparin Sq 5000 Unit/0.5ml) 5,000 unit Q8 SQ 04/30/17 22:00 05/30/17 21:59 05/01/17 06:05 5,000 UNIT Polyethylene (Miralax Powder Packet) 17 gm QAM PO 05/01/17 09:00 05/31/17 08:59 05/01/17 08:42 17 GM Senna (Senokot Tab) 17.2 mg QAM PO 05/01/17 09:00 05/31/17 08:59 05/01/17 08:40 17.2 MG (Gini Poole PA-C) Objective Vital Signs Date Time Temp Pulse Resp B/P (MAP) Pulse Ox O2 Delivery O2 Flow Rate FiO2 05/01/17 07:27 36.7 72 18 154/81 (105) 90 05/01/17 07:20 70 18 96 Nasal Cannula 4.0 05/01/17 02:11 69 18 96 Nasal Cannula 5.0 05/01/17 00:00 Nasal Cannula 5.0 04/30/17 23:39 36.9 77 18 152/85 (107) 77 Nasal Cannula 5.0 04/30/17 20:00 96 Nasal Cannula 5.0 04/30/17 19:36 72 18 96 Nasal Cannula 5.0 04/30/17 16:14 36.7 70 18 141/74 (96) 93 Nasal Cannula 5.0 04/30/17 16:00 Nasal Cannula 5.0 Humidified Oxygen 04/30/17 13:50 67 20 96 Nasal Cannula 5.0 04/30/17 12:00 Nasal Cannula 5.0 Humidified Oxygen (Gini Poole ., PA-C) Physical Exam General Appearance: no apparent distress, + obese, + pertinent finding (4L O2 NC; diaphoretic) Eyes: normal inspection, PERRL ENT: hearing grossly normal Neck: supple Respiratory/Chest: lungs clear, no respiratory distress, no accessory muscle use, + decreased breath sounds (bilateral lung bases ) Cardiovascular: regular rate, rhythm Abdomen: normal bowel sounds, + distended, + tenderness (diffuse ttp), + hernia (reducible ) Extremities: no pedal edema, no calf tenderness, + swelling (+1 pitting edema of bilateral lower extremities ) Neurologic/Psychiatric: alert, normal mood/affect, oriented x 3 Skin: normal color, no rash, + diaphoresis (Gini Poole ., PA-C) Laboratory Results Last 24 Hours Test 04/30/17 16:16 04/30/17 20:45 05/01/17 06:33 05/01/17 07:40 Bedside Glucose 281 mg/dl 258 mg/dl 279 mg/dl Prothrombin Time 13.7 SECONDS Prothromb Time International Ratio 1.3 Sodium Level 143 mmol/L Potassium Level 4.3 mmol/L Chloride Level 105 mmol/L Carbon Dioxide Level 29 mmol/L Anion Gap 9.0 mmol/L Blood Urea Nitrogen 38 mg/dl Creatinine 1.60 mg/dl Est Creatinine Clear Calc Drug Dose 45.2 ml/min Estimated GFR () 44.9 Estimated GFR (Non- 38.7 BUN/Creatinine Ratio 23.9 Random Glucose 299 mg/dl Calcium Level 8.6 mg/dl Test 05/01/17 11:21 Bedside Glucose 321 mg/dl (Gini Poole ., PA-C) Assessment and Plan 87 y/o male: Acute renal failure, secondary to post-obstruction given the hydronephrosis and hydroureter, bladder distension, and prostate enlargement- IMPROVING: - Admitted to tele for cardiac monitoring -- Transferred to med/surg on 04/30 - Antonio placed- monitor I&Os - Nephrotoxic agents held Severe BPH w/ prostatitis: - Flomax 0.4 mg HS - Antonio- will be d/c'd w/ Antonio - UCx negative - IV Zosyn Prostate nodule, lymphadenopathy on CT, markedly elevated PSA (206): - Attempted to obtain bone scan to r/o bony mets (likely given elevated alk phos /bone pain) but patient was unable to tolerate test (couldn't lie flat due to pain and was having orthopnea)- consider repeat bone scan inpatient vs outpatient - Urology consulted, appreciate recommendations -- Recommending Casodex 50 mg once daily x2 weeks, followed by Lupron or Firmagon injections starting in the office in a few weeks -- May need biopsy Metabolic encephalopathy, secondary to to ARF, prostatitis, +/- pneumonia- RESOLVED: Treated as above Acute hypoxic/hypercarbic respiratory failure w/ pneumonia: - ?Health-care associated due to recent hospitalization at [facility] - Decadron 4 mg daily, continue to wean - BCx- NGTD - IV Zosyn + Azithromycin Constipation and N/V: - Obtained KUB- No evidence for a bowel obstruction. Moderate amount of stool within the colon and rectum. - IV Zofran PRN - Senna and MiraLAX daily- consider enema if patient cannot tolerate PO medications Aortic stenosis- noted CAD- STABLE Dyslipidemia: Zocor 40 mg daily T2DM w/ hyperglycemia, likely secondary to steroid: - Inpatient regimen: Lantus 15 u BID and BSG ACHS w/ SSI- increase Lantus to 20 u BID - Home regimen: Novolog 10 u BID, Glipizide 5 mg daily Acute CHF- unknown EF: - Records from [facility] requested - Lasix 20 mg BID held due to ARF - Treated w/ Bumex 1 mg daily on 04/29 and 04/30 w/ good UO- will give additional dose today Parkinson's disease: Continue Sinemet 0.5 mg BID s/p left nephrectomy, secondary to farming accident s/p splenectomy, secondary to farming accident Recent rib fractures s/p fall: Voltaren gel QID Anemia, ?secondary to underling CKD vs other etiology- IMPROVING: Follow CBC Elevated INR, secondary to Vitamin K deficiency- IMPROVING: - Vitamin K 5 mg daily - Follow PT/INR Elevated sed rate, likely secondary to prostatitis and pneumonia Moderate-severe protein calorie malnutrition: Boost supplement GI Prophylaxis: Protonix, Maalox PRN, IV Zofran PRN, Colace and/or Milk of Mag PRN DVT Prophylaxis: Heparin TID Code Status: LEVEL V, DNR Dispo: [facility] vs [facility] once medically stable - Transition to PO antibiotics once tolerating PO intake again- likely transition to Augmentin (Gini Poole, CAT) I personally examined pt and verified all santiago points w Catrachita Poole PA-C was nauseated earlier but feeling a bit better now. still no BM ROS otherwise negative except for as above vitals noted nad breathing unlabored abd mild distended nausea/constipation - nausea improved but still no BM. suspect constipation is root cause of nausea - additional miralax (enema if vomits and cant tolerate) ARF/urinary retention/PELAYO -- much improved w antonio bladder CA - ongoing treatment as outpt stable for return to SNF once able to take PO better (suspect this will happen shortly after constipation resolves) (Nirav Mchugh D.Efrain.)
[2017-05-01] MEDS ORDERED: BUMETANIDE IV 1 MG in SYRINGE 0 ML IV ONE (14:00)
[2017-05-01] MEDS ORDERED: POLYETHYLENE (MIRALAX) 17 GM PACK PO PRN (18:00)
[2017-05-01] MEDS ORDERED: INSULIN GLARGINE SOLOSTAR 100 UNITS/ML 3 ML PEN SC SCH (21:00)
[2017-05-01] MEDS: SIMVASTATIN 40 MG TAB PO SCH (21:13)
[2017-05-02] VITALS (9 sets, daily range): BP systolic 125–172; BP diastolic 67–97; PULSE 63–77; TEMP 36.5–37; O2SAT 92–97; Ht 182.9 cm; Wt 120.4 kg
[2017-05-02] MEDS: ALBUT/IPRATROP 3MG/0.5MG NEB 3 ML VIAL INH SCH ×4 (01:58→19:15)
[2017-05-02] MEDS: HEPARIN SOD 5000 UNIT/0.5 ML CARP SQ SCH ×3 (05:46→21:45)
[2017-05-02] MEDS: PIPERACILL/TAZOBAC IV 4.5 GM in DEXTROSE 5% 100ML 100 ML IV SCH ×3 (05:47→21:34)
[2017-05-02 05:49] LABS: HEMATOCRIT 37.4 % (42-52); MEAN CELL VOLUME 102.7 fL (80-100); MEAN CORPUSCULAR HEMOGLOBIN 33.2 pg (25-34); MEAN CORPUSCULAR HGB CONC 32.4 g/dl (32-36); PLATELET COUNT 661 K/uL (130-400); RED BLOOD COUNT 3.64 M/uL (4.7-6.1); WHITE BLOOD COUNT 10.29 K/uL (4.8-10.8)
[2017-05-02 05:57] LABS: INR 1.2 (0.9-1.1); PROTHROMBIN TIME (PATIENT) 12.7 SECONDS (9.0-12.0)
[2017-05-02 06:26] LABS: BUN/CREATININE RATIO 24.4 (10-20); CREATININE 1.4 mg/dl (0.60-1.40); POTASSIUM 4.8 mmol/L (3.5-5.1)
[2017-05-02 06:36] LABS: BETA-HYDROXYBUTYRATE 1.15 mg/dL (0.2-2.81)
[2017-05-02] MEDS: CEROVITE ADV FORMULA TAB PO SCH (08:42)
[2017-05-02] MEDS: CARBIDOPA/LEVODOPA 25/100MG TAB PO SCH ×2 (08:43→20:49)
[2017-05-02] MEDS: PANTOprazole SOD 40 MG TAB PO SCH (08:45)
[2017-05-02] MEDS: PHYTONADIONE 5 MG TAB PO SCH (08:46)
[2017-05-02] MEDS: SENNA 8.6 MG TAB PO SCH (08:46)
[2017-05-02] MEDS: TAMSULOSIN HCL 0.4 MG CAP PO SCH (08:48)
[2017-05-02] MEDS: DICLOFENAC SOD 1% GEL 100 GM TUBE EXT SCH ×4 (08:49→21:02)
[2017-05-02] MEDS: POLYETHYLENE (MIRALAX) 17 GM PACK PO SCH (08:50)
[2017-05-02] MEDS: BOOST GLUCOSE CONTROL PO SCH ×2 (08:50→17:16)
[2017-05-02] MEDS: BICALUTAMIDE 50 MG TAB PO SCH (08:51)
[2017-05-02] MEDS: INSULIN GLARGINE SOLOSTAR 100 UNITS/ML 3 ML PEN SC SCH ×2 (08:52→21:00)
--- NOTE | 2017-05-02 09:00 | DIAGNOSTIC IMAGING REPORT ---
CT SCAN OF THE CERVICAL SPINE CLINICAL HISTORY: Prostate cancer. Neck pain. COMPARISON STUDY: No priors. TECHNIQUE: CT scan of the cervical spine is performed from the skull base to the upper thoracic spine. Images are reviewed in the axial, sagittal, and coronal planes. IV contrast was not administered for this examination. CT DOSE: 475.06 mGy.cm FINDINGS: Skeletal structures: The skeletal structures are osteopenic. There is no evidence of fracture or subluxation involving the cervical spine. No lytic or blastic lesions are seen. Vertebral body height and alignment are maintained. Anterior osteophytes are seen throughout. There is straightening of the cervical lordosis. The odontoid process and lateral masses are intact. The atlantoaxial articulation is preserved noting advanced productive degenerative change with bony overgrowth, sclerosis, and narrowing of the interval. The spinous processes appear intact. Degenerative endplate sclerosis is seen at C5-C6 and C6-C7. Uncovertebral and facet arthropathy contribute to multilevel neural foraminal stenosis. Intervertebral discs: There is moderate to advanced degenerative disc space narrowing seen at C5-C6, C6-C7, and C7-T1. Central canal: Posterior disc osteophyte complexes seen at C3-C4, C4-C5, C5-C6, C6-C7, and C7-T1 likely contribute to multilevel acquired compromise of the central canal. Soft tissues: The prevertebral and paraspinous soft tissues are within normal limits. There is advanced atherosclerotic calcification of the carotid bulbs. Calvarium: The visualized calvarium at the skull base appears intact. Brain parenchyma: Partially visualized brain parenchyma the skull base is within normal limits noting age-related involutional change. Sinuses and mastoids: The visualized paranasal sinuses are clear. The mastoid air cells are well pneumatized. Lung apices: Clear as visualized. IMPRESSION: 1. There is no evidence of fracture or subluxation involving the cervical spine. 2. Osteopenia with advanced multilevel cervical spondylosis as above. 3. No lytic or blastic lesions are seen. Electronically signed by: Humberto Faria M.D. 05/02/2017 8:58 AM Dictated Date/Time: 05/02/2017 8:50 AM
[2017-05-02] MEDS: DEXAMETHASONE 4 MG TAB PO SCH (09:13)
[2017-05-02] MEDS: INSULIN ASPART 100 UNITS/ML 3 ML PEN SC SCH ×4 (09:19→21:00)
[2017-05-02] MEDS ORDERED: POLYETHYLENE (MIRALAX) 17 GM PACK PO STA (10:52)
--- NOTE | 2017-05-02 11:00 | Hospitalist Progress Note ---
Hospitalist Progress Note Date of Service May 02, 2017. (Gini Poole ., PASapnaC) Subjective Pt evaluation today including: conversation w/ patient, conversation w/ family (Son- at bedside), physical exam, chart review, lab review, review of inpatient medication list Voiding: antonio catheter in place (draining yellow/clear urine ) Patient states he is feeling OK this AM. Nausea/vomiting has improved, but still present. +Decreased appetite. Now passing flatus; no BM yet- less abdominal discomfort. +Weakness. Patient denies any fever, chills, sweats, lightheadedness, dizziness, vision changes, CP, palpitations, edema, SOB, wheezing, cough, diarrhea, urinary symptoms, melena, numbness/tingling, muscle/joint pain, anxiety/depression, active bleeding, or new skin discoloration/changes. (Gini Poole ., PA-C) Medications Current Inpatient Medications Medications (Trade) Dose Ordered Sig/Yoan Route Start Time Stop Time Status Last Admin Dose Admin Carbidopa/Levodopa (Sinemet 25/ 100MG Tab) 0.5 tab BID PO 04/27/17 09:00 05/27/17 08:59 05/02/17 08:43 0.5 TAB Simvastatin (Zocor Tab) 40 mg QPM PO 04/27/17 21:00 05/27/17 20:59 05/01/17 21:13 40 MG Tamsulosin HCl (Flomax Cap) 0.4 mg DAILY PO 04/27/17 09:00 05/27/17 08:59 05/02/17 08:48 0.4 MG Oxycodone HCl (Roxicodone Immediate Rel Tab) 5 mg Q4H PRN PO 04/26/17 22:15 05/10/17 22:14 Acetaminophen (Tylenol Tab) 650 mg Q4H PRN PO 04/26/17 22:15 05/26/17 22:14 Ondansetron HCl (Zofran Inj) 4 mg Q6H PRN IV 04/26/17 22:15 05/26/17 22:14 05/01/17 07:42 4 MG Albuterol/ Ipratropium (Duoneb) 1 ml Q6R INH 04/27/17 03:00 05/27/17 02:59 05/02/17 07:26 1 ML Insulin Aspart (novoLOG ASPART) SLIDING SCALE G... ACHS SC 04/27/17 07:00 05/27/17 06:59 05/02/17 09:19 9 UNITS Albuterol Sulfate (Ventolin 0.083% 2.5MG/3ML Neb) 2.5 mg Q4H PRN INH 04/27/17 00:15 05/27/17 00:14 Morphine Sulfate (MoRPHine SULFATE INJ) 4 mg Q3H PRN IV 04/27/17 00:15 05/11/17 00:14 04/28/17 08:16 4 MG Glucose (Glucose 40% Gel) 15-30 GRAMS 15 GRAMS... UD PRN PO 04/27/17 01:00 05/27/17 00:59 Glucose (Glucose Chew Tab) 4-8 Tablets 4 Tabl... UD PRN PO 04/27/17 01:00 05/27/17 00:59 Dextrose (Dextrose 50% 50ML Syringe) 25-50ML OF 50% DW IV FOR... UD PRN IV 04/27/17 01:00 05/27/17 00:59 Glucagon (Glucagon Inj) 1 mg UD PRN SQ 04/27/17 01:00 05/27/17 00:59 Piperacillin Sod/ Tazobactam Sod (Consult) 1 ea UD PRN N/A 04/27/17 02:30 05/27/17 02:29 Multivitamins/ Minerals (Multivitamin W/ Minerals Tab) 1 tab QAM PO 04/30/17 09:00 05/30/17 08:59 05/02/17 08:42 1 TAB Phytonadione (Mephyton Tab) 5 mg DAILY PO 04/30/17 09:00 05/30/17 08:59 05/02/17 08:46 5 MG Pantoprazole Sodium (Protonix Tab) 40 mg QAM PO 05/01/17 09:00 05/31/17 08:59 05/02/17 08:45 40 MG Diclofenac Sodium (Voltaren 1% Top Gel) 1 appln QID EXT 04/30/17 10:30 05/30/17 10:29 05/02/17 08:49 1 APPLN Enteral Nutritional Formula (Boost Glucose Control) 1 can BIDM PO 04/30/17 16:45 05/30/17 16:44 05/02/17 08:50 1 CAN Piperacillin Sod/ Tazobactam Sod 4.5 gm/Dextrose 120 ml @ 30 mls/hr Q8H IV 04/30/17 14:00 05/07/17 03:59 05/02/17 05:47 30 MLS/HR Bicalutamide (Casodex Tab) 50 mg QAM PO 04/30/17 17:00 05/30/17 16:59 05/02/17 08:51 50 MG Heparin Sodium (Porcine) (Heparin Sq 5000 Unit/0.5ml) 5,000 unit Q8 SQ 04/30/17 22:00 05/30/17 21:59 05/01/17 21:17 5,000 UNIT Polyethylene (Miralax Powder Packet) 17 gm QAM PO 05/01/17 09:00 05/31/17 08:59 05/02/17 08:50 17 GM Senna (Senokot Tab) 17.2 mg QAM PO 05/01/17 09:00 05/31/17 08:59 05/02/17 08:46 17.2 MG Insulin Glargine (Lantus Solostar Pen) 25 unit BID SC 05/02/17 09:00 05/29/17 08:59 05/02/17 08:52 25 UNIT Dexamethasone (Decadron Tab) 2 mg DAILY PO 05/02/17 09:00 05/28/17 20:59 05/02/17 09:13 2 MG (Gini Poole, PA-C) Objective Vital Signs Date Time Temp Pulse Resp B/P (MAP) Pulse Ox O2 Delivery O2 Flow Rate FiO2 05/02/17 07:42 Nasal Cannula 4.0 05/02/17 07:26 63 18 96 Nasal Cannula 3.0 05/02/17 07:05 37.0 77 18 168/97 (120) 96 172/82 (112) 05/02/17 00:00 Nasal Cannula 4.0 05/01/17 23:39 36.9 75 17 141/76 (97) 92 Nasal Cannula 3.0 05/01/17 20:00 Nasal Cannula 4.0 05/01/17 19:56 74 18 93 Nasal Cannula 3.0 05/01/17 16:10 94 05/01/17 16:00 Nasal Cannula 4.0 05/01/17 15:59 36.5 66 16 133/74 (93) 85 Nasal Cannula 2.0 05/01/17 14:24 73 18 98 Nasal Cannula 4.0 (Gini Poole, ADONAY-C) Physical Exam General Appearance: no apparent distress, + obese, + pertinent finding (4L O2 NC ) Eyes: normal inspection, PERRL ENT: hearing grossly normal Neck: supple Respiratory/Chest: lungs clear, no respiratory distress, no accessory muscle use, + decreased breath sounds Cardiovascular: regular rate, rhythm Abdomen: normal bowel sounds, soft, + tenderness (diffuse mild ttp ), + hernia (reducible ) Extremities: no pedal edema, no calf tenderness, + swelling (+1 pitting edema of bilateral lower extremities ) Neurologic/Psychiatric: alert, oriented x 3 Skin: normal color, no rash, + diaphoresis (Gini Poole ., PA-C) Laboratory Results Last 24 Hours Test 05/01/17 11:21 05/01/17 16:49 05/01/17 21:16 05/02/17 05:34 Bedside Glucose 321 mg/dl 262 mg/dl 231 mg/dl White Blood Count 10.29 K/uL Red Blood Count 3.64 M/uL Hemoglobin 12.1 g/dL Hematocrit 37.4 % Mean Corpuscular Volume 102.7 fL Mean Corpuscular Hemoglobin 33.2 pg Mean Corpuscular Hemoglobin Concent 32.4 g/dl RDW Standard Deviation 50.8 fL RDW Coefficient of Variation 13.5 % Platelet Count 661 K/uL Mean Platelet Volume 9.0 fL Prothrombin Time 12.7 SECONDS Prothromb Time International Ratio 1.2 Sodium Level 141 mmol/L Potassium Level 4.8 mmol/L Chloride Level 105 mmol/L Carbon Dioxide Level 33 mmol/L Anion Gap 3.0 mmol/L Blood Urea Nitrogen 34 mg/dl Creatinine 1.40 mg/dl Est Creatinine Clear Calc Drug Dose 51.7 ml/min Estimated GFR () 52.7 Estimated GFR (Non- 45.5 BUN/Creatinine Ratio 24.4 Random Glucose 334 mg/dl Beta-Hydroxybutyric Acid 1.15 mg/dL Test 05/02/17 07:24 Bedside Glucose 293 mg/dl (Gini Poole, PA-C) Assessment and Plan 87 y/o male: Acute renal failure, secondary to post-obstruction given the hydronephrosis and hydroureter, bladder distension, and prostate enlargement- RESOLVED: - Admitted to [facility] for cardiac monitoring -- Transferred to med/surg on 04/30 - Antonio placed- monitor I&Os - Nephrotoxic agents held Severe BPH w/ prostatitis: - Flomax 0.4 mg HS - Antonio- will be discharged w/ Antonio - UCx negative - IV Zosyn- transition to Augmentin at discharge Prostate nodule, lymphadenopathy on CT, markedly elevated PSA (206): - Attempted to obtain bone scan to r/o bony mets (likely given elevated alk phos /bone pain) but patient was unable to tolerate test (couldn't lie flat due to pain and was having orthopnea)- can be completed outpatient - Urology consulted, appreciate recommendations -- Recommending Casodex 50 mg once daily x2 weeks, followed by Lupron or Firmagon injections starting in the office in a few weeks -- May need biopsy Metabolic encephalopathy, secondary to to ARF, prostatitis, +/- pneumonia- RESOLVED: Treated as above Acute hypoxic/hypercarbic respiratory failure w/ pneumonia: - ?Health-care associated due to recent hospitalization at [facility] - Decadron 4 mg daily, decreased to 2 mg on 05/02 and continue to wean - BCx- NGTD - IV Zosyn + Azithromycin -- Azithromycin received x5 days and d/c'd on 05/01 Constipation and N/V: - Obtained KUB- No evidence for a bowel obstruction. Moderate amount of stool within the colon and rectum. - IV Zofran PRN - Senna and MiraLAX - consider enema if patient cannot tolerate PO medications Aortic stenosis- noted CAD- STABLE Dyslipidemia: Zocor 40 mg daily T2DM w/ hyperglycemia, likely secondary to steroid: - Inpatient regimen: Lantus 20 u BID and BSG ACHS w/ SSI- increase Lantus to 25 u BID - Home regimen: Novolog 10 u BID, Glipizide 5 mg daily Acute CHF- unknown EF: - Records from [facility] requested - Treated w/ Bumex 1 mg daily on 04/29, 04/30, and 05/01 w/ good UO - Lasix 20 mg BID held due to ARF- ARF resolved, resume on 05/02 Parkinson's disease: Continue Sinemet 0.5 mg BID s/p left nephrectomy, secondary to farming accident s/p splenectomy, secondary to farming accident Recent rib fractures s/p fall: Voltaren gel QID Anemia, ?secondary to underling CKD vs other etiology- IMPROVING: Follow CBC Elevated INR, secondary to Vitamin K deficiency- IMPROVING: - Vitamin K 5 mg daily - Follow PT/INR Elevated sed rate, likely secondary to prostatitis and pneumonia Moderate-severe protein calorie malnutrition: Boost supplement GI Prophylaxis: Protonix, Maalox PRN, IV Zofran PRN, Colace and/or Milk of Mag PRN DVT Prophylaxis: Heparin TID Code Status: LEVEL V, DNR Dispo: Medically stable- discharge to [facility] pending approval, hopefully tomorrow- social professionals consulted (Gini Poole, PA-C) I personally examined pt and verified all [place] points w Catrachita Poole PA-C feeling better belly doing better flatus but no BM but no pain/nausea notes poor appetite ROS otherwise negative except for as above vitls noted nad breating unlabored abd soft mod distention no guarding no rebound no masses abdominal pain/nausea - improved - due to constipation constipation - additional miralax ARF - improving w antonio drainage poor appetite - protein shakes, encourage PO intake, consider appetite stimulant if doesn't improve over next week or so (Nirav Mchugh, D.O.)
[2017-05-02 13:18] LABS: CALCIUM 8.8 mg/dl (8.5-10.1)
[2017-05-02] MEDS ORDERED: POLYETHYLENE (MIRALAX) 17 GM PACK PO ONE (17:30)
[2017-05-02] MEDS: SIMVASTATIN 40 MG TAB PO SCH (20:49)
[2017-05-02] MEDS: FUROSEMIDE 20 MG TAB PO SCH (20:50)
[2017-05-03 02:08] VITALS: PULSE 64; O2SAT 94
[2017-05-03] MEDS: ALBUT/IPRATROP 3MG/0.5MG NEB 3 ML VIAL INH SCH ×3 (02:08→13:58)
[2017-05-03] MEDS: HEPARIN SOD 5000 UNIT/0.5 ML CARP SQ SCH (05:21)
[2017-05-03] MEDS: PIPERACILL/TAZOBAC IV 4.5 GM in DEXTROSE 5% 100ML 100 ML IV SCH (05:22)
[2017-05-03 06:57] VITALS: BP 125/72; PULSE 66; TEMP 36.7; O2SAT 93
[2017-05-03 07:19] VITALS: PULSE 64; O2SAT 94
[2017-05-03 07:25] LABS: HEMATOCRIT 38.3 % (42-52); MEAN CELL VOLUME 100.8 fL (80-100); MEAN CORPUSCULAR HEMOGLOBIN 30.8 pg (25-34); MEAN CORPUSCULAR HGB CONC 30.5 g/dl (32-36); MEAN PLATELET VOLUME 8.8 fL (7.4-10.4); PLATELET COUNT 681 K/uL (130-400); WHITE BLOOD COUNT 11.36 K/uL (4.8-10.8)
[2017-05-03 07:37] LABS: INR 1.2 (0.9-1.1); PROTHROMBIN TIME (PATIENT) 12.6 SECONDS (9.0-12.0)
[2017-05-03 07:57] LABS: BUN/CREATININE RATIO 21.2 (10-20); CALCIUM 8.6 mg/dl (8.5-10.1); CREATININE 1.4 mg/dl (0.60-1.40)
[2017-05-03] MEDS: BOOST GLUCOSE CONTROL PO SCH (08:01)
[2017-05-03] MEDS: SENNA 8.6 MG TAB PO SCH (08:02)
[2017-05-03] MEDS: POLYETHYLENE (MIRALAX) 17 GM PACK PO SCH (08:02)
[2017-05-03] MEDS: DICLOFENAC SOD 1% GEL 100 GM TUBE EXT SCH ×2 (08:07→12:46)
[2017-05-03] MEDS: INSULIN GLARGINE SOLOSTAR 100 UNITS/ML 3 ML PEN SC SCH (08:10)
[2017-05-03] MEDS: INSULIN ASPART 100 UNITS/ML 3 ML PEN SC SCH ×2 (08:10→12:45)
[2017-05-03] MEDS: BICALUTAMIDE 50 MG TAB PO SCH (08:11)
[2017-05-03] MEDS: DEXAMETHASONE 4 MG TAB PO SCH (08:14)
[2017-05-03] MEDS: TAMSULOSIN HCL 0.4 MG CAP PO SCH (08:14)
[2017-05-03] MEDS: CEROVITE ADV FORMULA TAB PO SCH (08:15)
[2017-05-03] MEDS: PHYTONADIONE 5 MG TAB PO SCH (08:15)
[2017-05-03] MEDS: FUROSEMIDE 20 MG TAB PO SCH (08:15)
[2017-05-03] MEDS: PANTOprazole SOD 40 MG TAB PO SCH (08:16)
[2017-05-03] MEDS: CARBIDOPA/LEVODOPA 25/100MG TAB PO SCH (08:16)
[2017-05-03] MEDS ORDERED: NUTR-7 PO (12:16)
[2017-05-03] MEDS ORDERED: [UNRECOGNIZED DRUG - CODE] PO (12:16)
[2017-05-03] MEDS ORDERED: CSD50 PO (12:16)
[2017-05-03] MEDS ORDERED: MRLP17 PO (12:16)
[2017-05-03] MEDS ORDERED: VLTG EXT (12:17)
[2017-05-03] MEDS ORDERED: AMOX875T PO ×3 (12:17→13:28)
[2017-05-03] MEDS ORDERED: CNT PO (12:17)
--- NOTE | 2017-05-03 12:41 | Discharge Instructions ---
Discharge Instructions Date of Service May 03, 2017. Admission Reason for Admission: Arf, Urinary Retention Discharge Discharge Diagnosis / Problem: Acute renal failure; urinary retention Discharge Goals Goal(s): Decrease discomfort, Improve function, Increase independence, Improve disease control, Improve nutritional status, Learn about illness, Diagnostic testing, Therapeutic intervention, Prevent Disease Progression Activity Recommendations Activity Level: Assistance Required Therapies: Physical Therapy, Occupational Therapy . Additional Information Patient informed of condition: Yes Advance Directives: Yes DNR: Yes Level of Care: Acute Rehab Communicable Disease: No Prognosis: Stable Oxygen at (LPM): 2L Kaba Catheter: Yes Instructions / Follow-Up Instructions / Follow-Up Acute renal failure, secondary to post-obstruction given the hydronephrosis and hydroureter, bladder distension, and prostate enlargement- RESOLVED: - Admitted to [facility] for cardiac monitoring -- Transferred to med/surg on 04/30 - Kaba placed- monitor I&Os - Nephrotoxic agents held - Follow PRP Severe BPH w/ prostatitis: - Flomax 0.4 mg HS - Kaba- will be discharged w/ Kbaa - UCx negative - IV Zosyn- transition to Augmentin BID to complete 6 week course (last day ) Prostate nodule, lymphadenopathy on CT, markedly elevated PSA (206): - Attempted to obtain bone scan to r/o bony mets (likely given elevated alk phos /bone pain) but patient was unable to tolerate test (couldn't lie flat due to pain and was having orthopnea)- can be completed outpatient - Urology consulted, appreciate recommendations -- Recommending Casodex 50 mg once daily x2 weeks, followed by Lupron or Firmagon injections starting in the office in a few weeks -- May need biopsy Metabolic encephalopathy, secondary to to ARF, prostatitis, +/- pneumonia- RESOLVED: Treated as above Acute hypoxic/hypercarbic respiratory failure w/ pneumonia: - ?Health-care associated due to recent hospitalization at [facility]- [place] - Decadron 4 mg daily, decreased to 2 mg on 05/02 and continue to wean over the next week at discharge - BCx- NGTD - IV Zosyn + Azithromycin -- Azithromycin received x5 days and d/c'd on 05/01 -- Treated w/ Zosyn x7 days- d/c'd at discharge and transitioned to PO antibiotics Constipation and N/V- RESOLVED: - Obtained KUB- No evidence for a bowel obstruction. Moderate amount of stool within the colon and rectum. - IV Zofran PRN - Senna and MiraLAX -- Continue MiraLAX daily Aortic stenosis- noted CAD- STABLE Dyslipidemia: Zocor 40 mg daily T2DM w/ hyperglycemia, likely secondary to steroid- IMPROVING: - Inpatient regimen: Lantus 25 u BID and BSG ACHS w/ SSI - Home regimen: Novolog 10 u BID, Glipizide 5 mg daily -- Will continue home regimen at discharge and [facility] can continue diabetic management Acute CHF- unknown EF: - Treated w/ Bumex 1 mg daily on 04/29, 04/30, and 05/01 w/ good UO - Lasix 20 mg BID held due to ARF- ARF resolved, resume on 05/02 Parkinson's disease: Continue Sinemet 0.5 mg BID s/p left nephrectomy, secondary to farming accident s/p splenectomy, secondary to farming accident Recent rib fractures s/p fall: Voltaren gel QID Anemia, ?secondary to underling CKD vs other etiology- RESOLVED: Follow CBC Elevated INR, secondary to Vitamin K deficiency- IMPROVING: - Vitamin K 5 mg daily - Follow PT/INR Elevated sed rate, likely secondary to prostatitis and pneumonia Moderate-severe protein calorie malnutrition: Boost supplement GI Prophylaxis: Protonix, Maalox PRN, IV Zofran PRN, Colace and/or Milk of Mag PRN DVT Prophylaxis: Heparin TID Code Status: LEVEL V, DNR Dispo: Discharge to [facility] Follow-Ups: Follow-up with [facility] provider within 24-48 hrs Follow-up with Urology within 2 weeks Please follow-up with your PCP within 5-7 days after discharge from [facility] Please follow-up/keep all of your subspecialty appointments Current Hospital Diet Patient's current hospital diet: Diabetes Type 2 Diet Discharge Diet Recommended Diet: AHA Diet (Heart Healthy), Diabetes Type 2 Diet Procedures Procedures Performed: CXR Abdominal CT Head CT Cervical spine CT Shoulder x-ray Upper extremity ultrasound KUB x-ray Pending Studies Studies pending at discharge: no Physician Orders On Transfer Special Precautions: Fall precautions Dressing Changes: None IV Therapy: None Vital Signs: Routine Additional Orders: Patient has been hyperglycemic while inpatient due to Decadron but continues to improve with taper- monitor BSG closely Decadron taper over the next week- 2 mg on 05/04, then 1.5 mg x2 days, then 1.0 mg x2 days, 0.5 mg x2 days Last day of Augmentin treatment will be June 11 Would continue MiraLAX daily to prevent further constipation POLST Discussion: without POLST completion Laboratory Results Last 24 Hours Test 05/02/17 16:17 05/02/17 20:41 05/03/17 07:10 05/03/17 07:11 Bedside Glucose 340 mg/dl 296 mg/dl 202 mg/dl White Blood Count 11.36 K/uL Red Blood Count 3.80 M/uL Hemoglobin 11.7 g/dL Hematocrit 38.3 % Mean Corpuscular Volume 100.8 fL Mean Corpuscular Hemoglobin 30.8 pg Mean Corpuscular Hemoglobin Concent 30.5 g/dl RDW Standard Deviation 49.0 fL RDW Coefficient of Variation 13.4 % Platelet Count 681 K/uL Mean Platelet Volume 8.8 fL Nucleated RBC Absolute Count (auto) 0.02 K/uL Nucleated Red Blood Cells % 0.2 % Prothrombin Time 12.6 SECONDS Prothromb Time International Ratio 1.2 Sodium Level 139 mmol/L Potassium Level 4.0 mmol/L Chloride Level 103 mmol/L Carbon Dioxide Level 29 mmol/L Anion Gap 7.0 mmol/L Blood Urea Nitrogen 30 mg/dl Creatinine 1.40 mg/dl Est Creatinine Clear Calc Drug Dose 51.7 ml/min Estimated GFR () 52.7 Estimated GFR (Non- 45.5 BUN/Creatinine Ratio 21.2 Random Glucose 191 mg/dl Calcium Level 8.6 mg/dl Test 05/03/17 11:22 Bedside Glucose 180 mg/dl Medical Emergencies . Who to Call and When: Medical Emergencies: If at any time you feel your situation is an emergency, please call 911 immediately. . Non-Emergent Contact Non-Emergency issues call your: Primary Care Provider . . "Provider Documentation" section prepared by Gini Poole. . Core Measure Problem Core Measures: None
[2017-05-03] MEDS ORDERED: DEXA1TAB PO (12:47)
[2017-05-03 13:23] VITALS: BP 125/72; PULSE 64; TEMP 36.7; O2SAT 94
--- NOTE | 2017-05-03 13:23 | Discharge Summary ---
Discharge Summary Date of Service May 03, 2017. (Gini Poole, CAT) Discharge Summary Admission Date: Apr 26, 2017 at 22:27 Discharge Date: May 03, 2017 Discharge Disposition: Rehab Principal Diagnosis: Acute renal failure; urinary retention Problems/Secondary Diagnoses: Acute renal failure, secondary to post-obstruction given the hydronephrosis and hydroureter, bladder distension, and prostate enlargement Severe BPH w/ prostatitis Prostate nodule, lymphadenopathy on CT, markedly elevated PSA (206) Metabolic encephalopathy, secondary to to ARF, prostatitis, +/- pneumonia Acute hypoxic/hypercarbic respiratory failure w/ pneumonia Constipation and N/V Aortic stenosis CAD Dyslipidemia T2DM w/ hyperglycemia, likely secondary to steroid Acute CHF- unknown EF Parkinson's disease s/p left nephrectomy, secondary to farming accident s/p splenectomy, secondary to farming accident Recent rib fractures s/p fall Anemia, ?secondary to underling CKD vs other etiology Elevated INR, secondary to Vitamin K deficiency Elevated sed rate, likely secondary to prostatitis and pneumonia Moderate-severe protein calorie malnutrition Procedures: CHEST ONE VIEW PORTABLE CLINICAL HISTORY: Sepsis COMPARISON STUDY: No previous studies for comparison. FINDINGS: The heart is enlarged. There is no overt failure. Increased basal markings are likely atelectatic. There is no lobar consolidation. There is no significant pleural fluid[ IMPRESSION: 1. Cardiomegaly 2. No evidence of failure 3. Bibasilar opacities likely atelectatic Electronically signed by: Moreno Huerta M.D. 04/26/2017 8:40 PM Dictated Date/Time: 04/26/2017 8:39 PM The status of this report is Signed. Draft = Not yet reviewed or approved by Radiologist. Signed = Reviewed and approved by Radiologist. [~ rep ct add3]] CT SCAN OF THE ABDOMEN AND PELVIS WITHOUT CONTRAST CLINICAL HISTORY: renal failure CHANGE IN MENTAL STATUS. PAIN. COMPARISON STUDY: No previous studies for comparison. TECHNIQUE: CT scan of the abdomen and pelvis was performed from the lung bases to the proximal femurs. Images are reviewed in the axial, sagittal, and coronal planes. IV contrast was not administered for this examination. CT DOSE: FINDINGS: Lower chest: There is respiratory motion artifact. There are bibasal airspace opacities, likely atelectatic although an inflammatory process could appear similar. Liver: The unenhanced liver is normal in size, contour, and attenuation. There is no intrahepatic biliary ductal dilatation. Gallbladder: Unremarkable. Spleen: Not visualized and presumed surgically absent Pancreas: Unremarkable. Adrenal glands: Unremarkable. Kidneys: The left kidney appears absent. There are tubular structures present within the left renal fossa. There is extensive right-sided perinephric stranding. There are multiple right renal cysts measuring up to 6.5 cm. There is right-sided hydronephrosis and hydroureter. There is right perinephric edema. No renal calculi are visualized. Bowel: There are no transition zones to indicate bowel obstruction. There is a left inguinal hernia containing colon. There is a supraumbilical ventral hernia containing a portion of transverse colon. Superior to this is a fat-containing ventral hernia. There is also an umbilical hernia containing a small portion of bowel. There is no acute diverticulitis. There is no evidence of acute appendicitis. Peritoneum: There is no intraperitoneal free air or abdominal ascites. Vasculature: The abdominal aorta is normal in course and caliber. Adenopathy: There is left para-aortic lymphadenopathy with nodes measuring up to 27 mm in diameter. There is also left common iliac adenopathy. Pelvic viscera: The bladder is moderately distended. The prostate is enlarged measuring 7 cm. Skeletal structures: There are advanced degenerative changes present within the spine. There are old rib fractures. IMPRESSION: 1. Bibasal airspace opacities, atelectatic versus inflammatory 2. Absent spleen and left kidney 3. Right-sided hydronephrosis. Right-sided hydroureter. Marked right-sided perinephric and periureteral stranding. 4. No renal, ureteral, or bladder calculi identified 5. Bladder distention. Marked prostate enlargement 6. Retroperitoneal lymphadenopathy 7. Multiple right renal cysts 8. Moderate to large left inguinal hernia containing colon. 9. Bowel containing ventral hernia. 10. No evidence of bowel obstruction. No evidence of free air 11. No evidence of acute diverticulitis. No evidence of acute appendicitis. Electronically signed by: Moreno Huerta M.D. 04/26/2017 9:03 PM Dictated Date/Time: 04/26/2017 8:53 PM The status of this report is Signed. Draft = Not yet reviewed or approved by Radiologist. Signed = Reviewed and approved by Radiologist. CT HEAD WITHOUT CONTRAST (CT) CLINICAL HISTORY: Acute change in mental status COMPARISON STUDY: No previous studies for comparison. TECHNIQUE: Axial CT of the brain is performed from the vertex to the skull base. IV contrast was not administered for this examination. CT DOSE: 5007.82 mGy.cm FINDINGS: No intra or extra-axial mass lesions are visualized. There is no CT evidence of acute cortical infarction. There is no evidence of midline shift. There is no acute hemorrhage. No calvarial fractures are visualized. There are minor white matter hypodensities likely on a small vessel basis. There is no evidence of pathologic ventricular dilatation. There is no evidence of acute sinusitis IMPRESSION: No acute intracranial findings Electronically signed by: Moreno Huerta M.D. 04/26/2017 8:53 PM Dictated Date/Time: 04/26/2017 8:52 PM The status of this report is Signed. Draft = Not yet reviewed or approved by Radiologist. Signed = Reviewed and approved by Radiologist. SINGLE VIEW CHEST CLINICAL HISTORY: Dyspnea. FINDINGS: An AP, portable, upright chest radiograph is compared to study dated 04/26/2017. The examination is significantly degraded by portable technique , large body habitus, patient rotation, and by the patient's head obscuring the lung apices. The heart is enlarged. There is prominence of the central pulmonary vessels. There are small pleural effusions, left larger than right with dense left basilar consolidation. Mild airspace opacities are also seen at the right lung base. No pneumothorax is seen. The skeletal structures are osteopenic. Degenerative change is noted throughout the thoracic spine. IMPRESSION: 1. Cardiomegaly with 4 months of the central pulmonary vessels. Correlate clinically for evidence of mild congestive failure. 2. Small pleural effusions, left larger than right with dense left basilar consolidation. Mild airspace opacities are also present the right lung base. This could represent atelectasis, pneumonia, and/or aspiration pneumonitis. Clinical correlation will be required. Electronically signed by: Humberto Faria M.D. 04/29/2017 7:05 AM Dictated Date/Time: 04/29/2017 7:02 AM The status of this report is Signed. Draft = Not yet reviewed or approved by Radiologist. Signed = Reviewed and approved by Radiologist. RIGHT SHOULDER 2 VIEWS CLINICAL HISTORY: Right shoulder pain. Prostate cancer. FINDINGS: 2 portable views the right shoulder are obtained. No prior studies are available for comparison at the time of dictation. The skeletal structures are osteopenic. No fracture or dislocation is seen. Productive degenerative changes seen at the acromioclavicular joint. Arthritic change is also identified at the glenohumeral joint. There is evidence of calcific tendinopathy. There is no radiographic evidence of osteoblastic lesion as clinically queried. The overlying soft tissues are within normal limits. Imaged right lung parenchyma appears clear. IMPRESSION: 1. Osteopenia and arthritic change as above. No acute bony abnormality is seen in the right shoulder. 2. Calcific tendinopathy is observed. Electronically signed by: Humberto Faria M.D. 04/29/2017 1:32 PM Dictated Date/Time: 04/29/2017 1:30 PM The status of this report is Signed. Draft = Not yet reviewed or approved by Radiologist. Signed = Reviewed and approved by Radiologist. VENOUS DOPPLER RIGHT ARM UPPER EXTREMITY VENOUS DOPPLER HISTORY: Pain. Edema. eval for DVT right arm Right COMPARISON STUDY: None. FINDINGS: The internal jugular vein is patent. There is normal flow within the subclavian vein. There is normal flow and compressibility within the left axillary, basilic, brachial, radial, ulnar, and visualized cephalic veins. IMPRESSION: No DVT within the upper extremity. Electronically signed by: Matti Dennis M.D. 04/30/2017 9:38 AM Dictated Date/Time: 04/30/2017 9:37 AM The status of this report is Signed. Draft = Not yet reviewed or approved by Radiologist. Signed = Reviewed and approved by Radiologist. KUB CLINICAL HISTORY: Constipation COMPARISON STUDY: CT of the abdomen and pelvis April 26, 2017. FINDINGS: The bowel gas pattern is normal. There is a moderate amount of stool within the colon and rectum. There are left upper quadrant surgical clips. IMPRESSION: 1. No evidence for a bowel obstruction. 2. Moderate amount of stool within the colon and rectum. Electronically signed by: Jayjay Joaquin M.D. 05/01/2017 11:12 AM Dictated Date/Time: 05/01/2017 11:12 AM The status of this report is Signed. Draft = Not yet reviewed or approved by Radiologist. Signed = Reviewed and approved by Radiologist. CT SCAN OF THE CERVICAL SPINE CLINICAL HISTORY: Prostate cancer. Neck pain. COMPARISON STUDY: No priors. TECHNIQUE: CT scan of the cervical spine is performed from the skull base to the upper thoracic spine. Images are reviewed in the axial, sagittal, and coronal planes. IV contrast was not administered for this examination. CT DOSE: 475.06 mGy.cm FINDINGS: Skeletal structures: The skeletal structures are osteopenic. There is no evidence of fracture or subluxation involving the cervical spine. No lytic or blastic lesions are seen. Vertebral body height and alignment are maintained. Anterior osteophytes are seen throughout. There is straightening of the cervical lordosis. The odontoid process and lateral masses are intact. The atlantoaxial articulation is preserved noting advanced productive degenerative change with bony overgrowth, sclerosis, and narrowing of the interval. The spinous processes appear intact. Degenerative endplate sclerosis is seen at C5-C6 and C6-C7. Uncovertebral and facet arthropathy contribute to multilevel neural foraminal stenosis. Intervertebral discs: There is moderate to advanced degenerative disc space narrowing seen at C5-C6, C6-C7, and C7-T1. Central canal: Posterior disc osteophyte complexes seen at C3-C4, C4-C5, C5-C6, C6-C7, and C7-T1 likely contribute to multilevel acquired compromise of the central canal. Soft tissues: The prevertebral and paraspinous soft tissues are within normal limits. There is advanced atherosclerotic calcification of the carotid bulbs. Calvarium: The visualized calvarium at the skull base appears intact. Brain parenchyma: Partially visualized brain parenchyma the skull base is within normal limits noting age-related involutional change. Sinuses and mastoids: The visualized paranasal sinuses are clear. The mastoid air cells are well pneumatized. Lung apices: Clear as visualized. IMPRESSION: 1. There is no evidence of fracture or subluxation involving the cervical spine. 2. Osteopenia with advanced multilevel cervical spondylosis as above. 3. No lytic or blastic lesions are seen. Electronically signed by: Humberto Faria M.D. 05/02/2017 8:58 AM Dictated Date/Time: 05/02/2017 8:50 AM The status of this report is Signed. Draft = Not yet reviewed or approved by Radiologist. Signed = Reviewed and approved by Radiologist. Consultations: Urology (Gini Poole, CAT) Medication Reconciliation New Medications: Amoxicillin & Pot Clavulanate (Augmentin 875-125 mg) 1 Tab Tab 875 MG PO BID for 39 Days, #78 TAB Dexamethasone (Dexamethasone) 1 Mg Tab 1 MG PO UD for 7 Days, #8 TAB 2 mg by mouth x1 days (05/04), then 1.5 mg x2 days, then 1 mg x2 days, then 0.5 mg x2 days Bicalutamide (Bicalutamide) 50 Mg Tab 50 MG PO QAM for 30 Days, #30 TAB Diclofenac Sod (Voltaren) 100 Appln/100 Gm Gel 1 APPLN EXT QID for 30 Days Multivitamins/Minerals (Certavite/Antioxidants) 1 Tab Tab 1 TAB PO QAM for 30 Days, #30 TAB Nutritional Supplements (Boost) 1 Liq Liq 1 CAN PO BIDM for 30 Days Phytonadione (Mephyton) 5 Mg Tab 5 MG PO DAILY for 30 Days, #30 TAB Polyethylene (Miralax) 17 Gm Pow 17 GM PO QAM for 30 Days Continued Medications: Acetaminophen (Tylenol) 325 Mg Tab 650 MG PO Q6 PRN for Pain, TAB Carbidopa/Levodopa (Sinemet Cr 25MG/100MG) Tabcr 0.5 TAB PO BID, TAB Furosemide (Lasix) 20 Mg Tab 20 MG PO BID, TAB Glipizide (Glucotrol) 5 Mg Tab 5 MG PO DAILY, TAB Glucagon (Glucagon Emergency Kit) 1 Mg Kit 1 DOSE IM DIRECTED PRN for HYPOGLYCEMIA PROTOCOL Insulin Aspart (Novolog) 100 Units/Ml Inj 10 UNITS SQ BID Ipratropium-Albuterol (Duoneb) 3 Ml Nebu 1 TREATMENT INH Q6 PRN for Shortness of Breath, INHA Magnesium Hydroxide (Milk of Magnesia) 30 Ml Susp 30 ML PO DIRECTED PRN for Constipation Oxycodone/Acetaminophen 5MG/325MG (Percocet 5MG/325MG) Tab 1 TABLET PO Q6H PRN for Pain, TAB PAIN Simvastatin (Zocor) 40 Mg Tab 40 MG PO QPM, TAB Sodium Phosphate/Biphosphate (Fleet Enema) Cherry 1 EA OK DAILY PRN for Constipation, BTL Tamsulosin HCl (Tamsulosin HCl) 0.4 Mg Cap 0.4 MG PO DAILY Discontinued Medications: Levofloxacin (Levaquin) 500 Mg Tab 500 MG PO DAILY, TAB Discharge Exam Review of Systems: Constitutional: + weakness, No fever, No chills, No sweats, No fatigue Respiratory: No cough, No shortness of breath, No hemoptysis Cardiovascular: No chest pain, No edema, No palpitations Abdomen: No pain, No nausea, No vomiting, No diarrhea, No constipation Musculoskeletal: No joint pain, No muscle pain, No swelling, No calf pain Neurologic: No numbness/tingling Psychiatric: No depression symptoms, No anxiety Hematologic / Lymphatic: No abnormal bleeding/bruising Integumentary: No rash, No itch, No new/changing skin lesions Physical Exam: General Appearance: no apparent distress, + obese, + pertinent finding (2L O2 NC ) Eyes: normal inspection, PERRL ENT: hearing grossly normal Neck: supple Respiratory/Chest: lungs clear, no respiratory distress, no accessory muscle use Cardiovascular: regular rate, rhythm Abdomen / GI: normal bowel sounds, non tender, soft Extremities: no calf tenderness, no pedal edema, + swelling (+1 pitting edema of bilateral lower extremities ) Neurologic/Psychiatric: alert, oriented x 3 Skin: normal color, warm/dry, no rash (Gini Poole, CAT) Hospital Course H&P on admission: 87 y/o M Hx Parkinson's, CKD, CHF, CAD, dementia, splenectomy , paraplegia, morbid obesity, aortic stenosis. Pt was recently admitted to [facility] due to a fall, rib fracture, UTI and acute on chronic RF. He was then transferred to [facility] for rehab. He presents today due to increasing confusion, seemingly labored breathing and oliguria. On arrival to the ER a bladder scan revealed [address] abdomen was notable for R hydronephrosis, hydroureter, perinephric and periureteral stranding and possibly b/l lower lobe infiltrates. Labs are notable for leukocytosis and a creatinine > 9.0. He is unable to voice any complaints or contribute to the HPI. His son's are at bedside to provide the above information and have confirmed that the pt is exhibiting functional decline. the pt is DNR status and family are not presently interested in pursuing dialysis if needed. Physical Exam Vital Signs Date Time Temp Pulse Resp B/P (MAP) Pulse Ox O2 Delivery O2 Flow Rate FiO2 04/26/17 22:26 95 Nasal Cannula 4.0 04/26/17 22:08 82 22 95 04/26/17 22:01 146/75 04/26/17 21:38 78 22 90 04/26/17 21:08 78 22 93 04/26/17 21:01 91/72 04/26/17 20:56 81 04/26/17 20:54 116/67 04/26/17 20:29 36.4 75 20 117/76 92 Nasal Cannula 4.0 04/26/17 20:29 92 Nasal Cannula 4.0 General Appearance: + pertinent finding (Confused, elderly, overweight male - labored breathing - appears uncomfortable) Head: normocephalic, atraumatic Eyes: normal inspection, PERRL, EOMI ENT: normal ENT inspection, pharynx normal, + pertinent finding (Dry mucosal membranes) Neck: supple, + JVD Respiratory/Chest: + decreased breath sounds, + accessory muscle use, + pertinent finding (limmited exam due to shallow resps and habitus - tenderness over chest wall) Cardiovascular: regular rate, rhythm, + systolic murmur Abdomen/GI: normal bowel sounds, + tenderness (diffuse abdominal tenderness with mild distention and a palpable central hernia) Back: + left CVA tenderness, + right CVA tenderness Extremities/Musculoskelatal: no calf tenderness, + pedal edema Neurologic/Psych: + disoriented, + pertinent finding (No overt deficits - cannot comply with exam) Skin: no rash, + pallor Acute renal failure, secondary to post-obstruction given the hydronephrosis and hydroureter, bladder distension, and prostate enlargement- RESOLVED: - Admitted to tele for cardiac monitoring -- Transferred to med/surg on 04/30 - Antonio placed- monitor I&Os - Nephrotoxic agents held Severe BPH w/ prostatitis: - Flomax 0.4 mg HS - Antonio- will be discharged w/ Antonio - UCx negative - IV Zosyn- transition to Augmentin BID at discharge for 6 week course (last day 06/07) Prostate nodule, lymphadenopathy on CT, markedly elevated PSA (206): - Attempted to obtain bone scan to r/o bony mets (likely given elevated alk phos /bone pain) but patient was unable to tolerate test (couldn't lie flat due to pain and was having orthopnea)- can be completed outpatient - Urology consulted, appreciate recommendations -- Recommending Casodex 50 mg once daily x2 weeks, followed by Lupron or Firmagon injections starting in the office in a few weeks -- May need biopsy Metabolic encephalopathy, secondary to to ARF, prostatitis, +/- pneumonia- RESOLVED: Treated as above Acute hypoxic/hypercarbic respiratory failure w/ pneumonia: - ?Health-care associated due to recent hospitalization at [facility] - Decadron 4 mg daily, decreased to 2 mg on 05/02 and continue to wean for 1 week taper at discharge - BCx- NGTD - IV Zosyn + Azithromycin -- Azithromycin received x5 days and d/c'd on 05/01 -- IV Zosyn x7 days and d/c'd at discharge- transitioned to PO Augmentin Constipation and N/V- RESOLVED: - Obtained KUB- No evidence for a bowel obstruction. Moderate amount of stool within the colon and rectum. - IV Zofran PRN - Senna and MiraLAX - consider enema if patient cannot tolerate PO medications Aortic stenosis- noted CAD- STABLE Dyslipidemia: Zocor 40 mg daily T2DM w/ hyperglycemia, likely secondary to steroid- IMPROVING: - Inpatient regimen: Lantus 25 u BID and BSG ACHS w/ SSI - Home regimen: Novolog 10 u BID, Glipizide 5 mg daily -- Resume home regimen at discharge and [facility] can continue to monitor/ treat BSG Acute CHF- unknown EF: - Records from [facility] requested - Treated w/ Bumex 1 mg daily on 04/29, 04/30, and 05/01 w/ good UO - Lasix 20 mg BID held due to ARF- ARF resolved, resume on 05/02 Parkinson's disease: Continue Sinemet 0.5 mg BID s/p left nephrectomy, secondary to farming accident s/p splenectomy, secondary to farming accident Recent rib fractures s/p fall: Voltaren gel QID Anemia, ?secondary to underling CKD vs other etiology- IMPROVING: Follow CBC Elevated INR, secondary to Vitamin K deficiency- IMPROVING: - Vitamin K 5 mg daily - Follow PT/INR Elevated sed rate, likely secondary to prostatitis and pneumonia Moderate-severe protein calorie malnutrition: Boost supplement GI Prophylaxis: Protonix, Maalox PRN, IV Zofran PRN, Colace and/or Milk of Mag PRN DVT Prophylaxis: Heparin TID Code Status: LEVEL V, DNR Dispo: Discharge to [facility] Total Time Spent: Greater than 30 minutes This includes examination of the patient, discharge planning, medication reconciliation, and communication with other providers. (Gini Poole ., PA-C) I personally examined pt and verified all santiago points w Catrachita Poole PA-C feeling OK about the same ready to go to [facility]. all other ROS otherwise negative except for as above vitals noted nad breathing unlabored no pallor or icterus small amount of hematuria urinary retention /prostate CA / obstructive uropathy w ARF - improved after antonio. hematuria likely due to antonio + CA --> continue to follow. periodic BMP UTI probable prostatitis - abx prostate CA - outpt oncology f/u poor appetite - encourage intake, encourage to eat as much as he can and then one more bite, protein shakes; if no imrpovement over a week then consider appetite stimulant stable for SNF (Nirav Mchugh, D.Efrain.) Discharge Instructions Please refer to the electronic Patient Visit Report (Discharge Instructions) for additional information. (Gini Poole ., JELENAC) Follow-Up Follow-up w/ [facility] provider within 24-48 hours Please follow-up with your PCP within 5-7 days after discharge from [facility] Please follow-up with Urology within 2 weeks Please follow-up/keep all of your subspecialty appointments (Gini Poole, JELENAC) Additional Copies To [facility]
[2017-05-03] MEDS ORDERED: OXYC-57 PO (14:07)
== END 2017-05-03 14:10 | DRG 682 ==
LOC: EDBD 20:08 → C.EDA 20:10 → C.2E 22:27 → ENRESERV 22:39 → C.MS2W 04-30 18:39
PROVIDERS: ADMIT Internal Medicine; ATTEND Family Medicine
DX: N17.9 Acute kidney failure, unspecified (principal); G93.41 Metabolic encephalopathy; J18.9 Pneumonia, unspecified organism; J96.01 Acute respiratory failure with hypoxia; J96.02 Acute respiratory failure with hypercapnia; N39.0 Urinary tract infection, site not specified; I50.9 Heart failure, unspecified; E11.9 Type 2 diabetes mellitus without complications; I25.10 Atherosclerotic heart disease of native coronary artery without angina pectoris; G20 Parkinson's disease; E66.01 Morbid (severe) obesity due to excess calories; N13.9 Obstructive and reflux uropathy, unspecified; N40.1 Benign prostatic hyperplasia with lower urinary tract symptoms; N41.9 Inflammatory disease of prostate, unspecified; R33.9 Retention of urine, unspecified; D63.1 Anemia in chronic kidney disease; K59.00 Constipation, unspecified; Z66 Do not resuscitate; Z68.36 Body mass index [BMI] 36.0-36.9, adult; Z79.4 Long term (current) use of insulin; Z79.84 Long term (current) use of oral hypoglycemic drugs; Z79.899 Other long term (current) drug therapy; Z90.5 Acquired absence of kidney

== ENCOUNTER → 2017-04-26 | Outpatient (CLI) | payer OTHER ==
[~2017-04-26] MED LIST: ACET-1311 PO; AMOX875T PO; CARB25TA16 PO; CNT PO; CSD50 PO; DEXA1TAB PO; DICL1GEL34 TOP; FLM4 PO; FURO-85 PO; GLGKIT IM; GLIP5TAB3 PO; IPRASOL4 INH; LEVO1TAB33 PO; MIRT15TA PO; MOMLX PO; MRLP17 PO; NUTR-7 PO; NVLG SQ; OXYC-57 PO; SIMV40TA2 PO; SODIENE PR; VLTG EXT; [UNRECOGNIZED DRUG - CODE] PO
[2017-04-26 18:28] LABS: BASO % 0.2 %; BASO ABS # 0.03 K/uL (0-0.2); COMPLETE YES; EOS % 3.6 %; HEMATOCRIT 35.2 % (42-52); IG% 0.8 %; LYMPH % 15.2 %; LYMPH ABS # 2.47 K/uL (1.2-3.4); MEAN CELL VOLUME 99.4 fL (80-100); MEAN CORPUSCULAR HEMOGLOBIN 33.3 pg (25-34); MEAN CORPUSCULAR HGB CONC 33.5 g/dl (32-36); MEAN PLATELET VOLUME 9.8 fL (7.4-10.4); MONO % 10.7 %; NEUT % 69.5 %; PLATELET COUNT 513 K/uL (130-400); RED BLOOD COUNT 3.54 M/uL (4.7-6.1); WHITE BLOOD COUNT 16.22 K/uL (4.8-10.8)
[2017-04-26 19:03] LABS: ALB/GLOB RATIO 0.5 (0.9-2); ALKALINE PHOSPHATASE 235 U/L (45-117); ALT/SGPT 13 U/L (12-78); AST/SGOT 29 U/L (15-37); BLOOD UREA NITROGEN 89 mg/dl (7-18); BUN/CREATININE RATIO 9.5 (10-20); CALCIUM 8.1 mg/dl (8.5-10.1); CARBON DIOXIDE 22 mmol/L (21-32); CHLORIDE 102 mmol/L (98-107); GLUCOSE 156 mg/dl (70-99); SODIUM 137 mmol/L (136-145)
--- NOTE | 2017-04-28 13:48 | CODING QUERY NO DIAGNOSIS ---
: 1932 TREATMENT RENDERED WITHOUT A DIAGNOSIS To promote full compliance with coding requirements relating to patient care, physician participation is requested in all cases of gasoline truck crane operator uncertainty. Please assist us with providing a diagnosis/symptom for the test(s) below: A diagnosis/symptom was not documented on your Order. A valid diagnosis/symptom is required to bill all insurances. Please remember that we are unable to code a diagnosis of rule out, probable, possible, questionable, or suspected. Tests that require a diagnosis: DOS: 04/26/17 * CBC W/AUTO DIFFERENTIAL DIAGNOSIS: * COMPREHENSIVE METABOLIC PANEL DIAGNOSIS: Provider Signature: Date: Thank you Terri Corey Health Information Management Once completed, please kindly fax back to [phone] For questions please call [phone]
== END ==
LOC: C.LABUPNIT 10:38
PROVIDERS: ATTEND Family Medicine
DX: N18.9 Chronic kidney disease, unspecified (principal)

== ENCOUNTER → 2017-05-11 | Outpatient (CLI) | payer OTHER ==
[~2017-05-11] MED LIST changes: -LEVO1TAB33 PO
[2017-05-11 09:39] LABS: BASO % 0.8 %; BASO ABS # 0.08 K/uL (0-0.2); COMPLETE YES; EOS % 7.4 %; HEMATOCRIT 38.5 % (42-52); IG% 0.3 %; LYMPH % 32.3 %; LYMPH ABS # 3.08 K/uL (1.2-3.4); MEAN CELL VOLUME 102.9 fL (80-100); MEAN CORPUSCULAR HEMOGLOBIN 33.2 pg (25-34); MEAN CORPUSCULAR HGB CONC 32.2 g/dl (32-36); MEAN PLATELET VOLUME 10.1 fL (7.4-10.4); MONO % 13.4 %; NEUT % 45.8 %; PLATELET COUNT 367 K/uL (130-400); RED BLOOD COUNT 3.74 M/uL (4.7-6.1); WHITE BLOOD COUNT 9.55 K/uL (4.8-10.8)
[2017-05-11 09:59] LABS: BLOOD UREA NITROGEN 17 mg/dl (7-18); GLUCOSE 187 mg/dl (70-99)
[2017-05-11 10:00] LABS: BUN/CREATININE RATIO 14.3 (10-20); CARBON DIOXIDE 30 mmol/L (21-32); CHLORIDE 103 mmol/L (98-107); POTASSIUM 3.9 mmol/L (3.5-5.1); SODIUM 139 mmol/L (136-145)
== END ==
LOC: C.LABCC 09:12
PROVIDERS: ATTEND Internal Medicine
DX: N17.9 Acute kidney failure, unspecified (principal)

== ENCOUNTER → 2017-06-04 | Outpatient (CLI) | payer OTHER | LOC: C.LABCC 08:34 | PROVIDERS: ATTEND Internal Medicine | DX: R97.20 Elevated prostate specific antigen [PSA] (principal); R33.9 Retention of urine, unspecified ==

== ENCOUNTER 2017-06-05 08:50 | Emergency (ER) | payer OTHER ==
[~2017-06-05 08:50] MED LIST changes: -DICL1GEL34 TOP; -MIRT15TA PO
[2017-06-05 09:05] VITALS: TEMP 37.7
[2017-06-05] MEDS ORDERED: MIRT15TA PO (09:30)
[2017-06-05] MEDS ORDERED: DICL1GEL34 TOP (09:30)
[2017-06-05] MEDS ORDERED: NVLG SQ (09:30)
[2017-06-05] MEDS ORDERED: MoRPHine SULFATE 4 MG/ML 1 ML CARP\\VIAL IV STA (09:46)
[2017-06-05] MEDS ORDERED: LIDOCAINE HCL 2% JELLY 30 ML TUBE EXT ONE (09:58)
[2017-06-05 12:01] VITALS: PULSE 80
--- NOTE | 2017-06-05 12:42 | EMERGENCY ROOM VISIT NOTE ---
History Report prepared by Evangelista: Sandra Carvajal Under the Supervision of: Dr. Niko Londono D.O. First contact with patient: 09:10 Chief Complaint: UNABLE TO VOID Stated Complaint: BLOOD IN URINE History of Present Illness The patient is an 87 year old male who presents to the Emergency Room with complaints of being unable to void since last night. The patient came to the ED via ambulance from [facility]. Nursing staff reports that correction staff attempted to perform a routine catheter replacement last night. However, when they tried to replace the catheter they were unable to insert it. The patient states that he has never experienced any difficulty inserting catheters in the past. The patient has not urinated since last night when the catheter was removed but he states that he felt like he urinated so he is unsure. The patient is also experiencing bleeding from his urethra. The patient was diagnosed with prostate cancer 3 weeks ago. Per nursing staff notes, the patient has been evaluated by an oncologist but declined surgical intervention. He is on oral chemotherapy medications. The patient has a follow-up appointment with urology this week. Source of History: patient, nursing staff Onset: last night Position: other (bladder, urinary tract) Quality: other (unable to void) Timing: constant Note: bleeding from urethra Review of Systems See HPI for pertinent positives & negatives. A total of 10 systems reviewed and were otherwise negative. Past Medical & Surgical Medical Problems: (1) Aortic stenosis (2) ARF (acute renal failure) (3) CAD (coronary artery disease) (4) Diabetes (5) Elevated PSA (6) Heart failure (7) Major depressive disorder (8) Myocardial infarction (9) Paraplegia (10) Parkinson disease (11) Urinary retention Family History No pertinent family history Social History Smoking Status: Former Smoker Housing Status: assisted living Current/Historical Medications Scheduled Amoxicillin & Pot Clavulanate (Augmentin 875-125 mg), 875 MG PO BID Bicalutamide (Bicalutamide), 50 MG PO QAM Carbidopa/Levodopa (Sinemet Cr 25MG/100MG), 0.5 TAB PO BID Diclofenac Sodium (Topical) (Diclofenac Sodium), 1 APPLN TOP QID Furosemide (Lasix), 20 MG PO BID Glipizide (Glucotrol), 5 MG PO DAILY Insulin Aspart (Novolog), 10 UNITS SQ BID Mirtazapine (Remeron), 15 MG PO HS Multivitamins/Minerals (Certavite/Antioxidants), 1 TAB PO QAM Nutritional Supplements (Boost), 1 CAN PO BIDM Phytonadione (Mephyton), 5 MG PO DAILY Polyethylene (Miralax), 17 GM PO QAM Simvastatin (Zocor), 40 MG PO QPM Tamsulosin HCl (Tamsulosin HCl), 0.4 MG PO DAILY Scheduled PRN Acetaminophen (Tylenol), 650 MG PO Q6 PRN for Pain Ipratropium-Albuterol (Duoneb), 1 TREATMENT INH Q6 PRN for Shortness of Breath Magnesium Hydroxide (Milk of Magnesia), 30 ML PO DIRECTED PRN for Constipation Oxycodone/Acetaminophen 5MG/325MG (Percocet 5MG/325MG), 1 TABLET PO Q6H PRN for Pain Sodium Phosphate/Biphosphate (Fleet Enema), 1 EA DE DAILY PRN for Constipation Miscellaneous Medications Insulin Aspart (Novolog), SQ Allergies Coded Allergies: No Known Allergies (Unverified , 06/05/17) Physical Exam Vital Signs Date Time Temp Pulse Resp B/P (MAP) Pulse Ox O2 Delivery O2 Flow Rate FiO2 06/05/17 12:01 80 18 136/72 93 Nasal Cannula 5.0 06/05/17 10:33 82 18 135/73 92 Nasal Cannula 4.0 06/05/17 09:05 37.7 83 20 150/80 88 Room Air Physical Exam CONSTITUTIONAL/VITAL SIGNS: Reviewed / noted above. GENERAL: Non-toxic in appearance. INTEGUMENTARY: Warm, dry, and [place]. HEAD: Normocephalic. EYES: without scleral icterus or trauma. ENT/OROPHARYNX: clear and moist. LYMPHADENOPATHY/NECK: Is supple without lymphadenopathy or meningismus. RESPIRATORY: Lungs clear and equal. CARDIOVASCULAR: Regular rate and rhythm. GI/ABDOMEN: Soft and nontender. No organomegaly or pulsatile mass. No rebound or guarding. Normal bowel sounds. EXTREMITIES: Warm and well perfused. : Blood at the tip of the penis. Small amount of blood in Depends. BACK: No CVA tenderness. NEUROLOGICAL: Intact without focal deficits. PSYCHIATRIC: normal affect. MUSCULOSKELETAL: Normally developed with good muscle tone. Medical Decision & Procedures Medications Administered Medications (Trade) Dose Ordered Sig/Yoan Route Start Time Stop Time Status Last Admin Dose Admin Morphine Sulfate (MoRPHine SULFATE INJ) 4 mg NOW STAT IV 06/05/17 09:46 06/05/17 09:48 DC 06/05/17 10:00 4 MG Lidocaine HCl (Xylocaine Jelly 2%) 30 ml STK-MED ONCE EXT 06/05/17 09:58 06/05/17 09:59 DC 06/05/17 10:01 30 ML ED Course 0911: Previous medical records were reviewed. The patient was evaluated in room B3. A complete history and physical examination was performed. 0943: Discussed the patient's case with a nurse at Dr. Contreras' office. She recommended a bladder scan then calling back. 0946: Ordered Morphine Sulfate 4 mg IV 0950: I called Dr. Contreras back and informed her that the patient's bladder scan revealed greater than 700 ccs of urine. She recommends trying an 18 Coude catheter. 1227: On reevaluation, the patient is doing well. I discussed the results and findings with the patient. He verbalized agreement of the treatment plan. He was discharged home. Medical Decision Differential considered: pancreatitis, hepatitis, or acute cholecystitis, AAA, UTI, pyelonephritis, kidney stones, appendicitis, diverticulitis, shingles, bowel obstruction mesenteric ischemia, intussusception, hernia, testicular torsion, urethral trauma, prostate enlargement. This is an 87-year-old male who presents to the ED with a chief complaint of urinary retention. The patient lives at [facility]. His catheter was removed to place a new catheter today as a routine precaution. The patient states that they were unable to place the catheter and he was sent here for evaluation. The patient states that it was very painful and this caused bleeding of his urethra. The patient has no other specific complaints at this time other than the sensation that he has to urinate but cannot. I spoke with Dr. Contreras about the patient. She recommends an 18 Hebrew coud catheter. This was placed without difficulty and the bladder drained about 1000 mL of urine. The urine dip did not clearly suggest a urinary tract infection. The patient has a urine culture pending. The patient was felt to be stable for discharge. He was feeling much better. Medication Reconcilliation Current Medication List: was personally reviewed by me Blood Pressure Screening Patient's blood pressure: Elevated blood pressure Blood pressure disposition: Elevated BP felt to be situational Consults Time Called: 920 Consulting Physician: Dr. Contreras - Urology Office Returned Call: [phone] Discussed the patient's case with a nurse at Dr. Contreras' office. She recommended a bladder scan then calling back. Impression Primary Impression: Urinary retention Additional Impressions: Urethral trauma Prostate cancer Scribe Attestation The scribe's documentation has been prepared under my direction and personally reviewed by me in its entirety. I confirm that the note above accurately reflects all work, treatment, procedures, and medical decision making performed by me. Departure Information Dispostion Home / Self-Care Referrals [place], [place] (PCP) Forms HOME CARE DOCUMENTATION FORM, IMPORTANT VISIT INFORMATION, WORK / SCHOOL INSTRUCTIONS Patient Instructions ED Catheter Care Genny Kaba [facility] Additional Instructions Follow-up with your doctor for further care and evaluation in 1-2 days. Return to the emergency department for worsening or new symptoms or any concerns. You have been examined and treated today on an emergency basis only. This is not a substitute for, or an effort to provide, complete comprehensive medical care. It is impossible to recognize and treat all injuries or illnesses in a single emergency department visit. It is therefore important that you follow up closely with your doctor. Call as soon as possible for an appointment. Problem Qualifiers
[2017-06-05 14:00] VITALS: BP 125/65; O2SAT 92
== END 2017-06-05 14:36 | disposition home or self-care (01) ==
LOC: EDBD 08:50 → C.EDB 08:51
DX: R33.9 Retention of urine, unspecified (principal); R31.9 Hematuria, unspecified; C61 Malignant neoplasm of prostate; S37.30XA Unspecified injury of urethra, initial encounter; X58.XXXA Exposure to other specified factors, initial encounter; G20 Parkinson's disease; E11.9 Type 2 diabetes mellitus without complications; Z79.4 Long term (current) use of insulin; Z87.891 Personal history of nicotine dependence

== ENCOUNTER → 2017-06-12 | Outpatient (CLI) | payer OTHER ==
[~2017-06-12] MED LIST changes: -DEXA1TAB PO; +DICL1GEL34 TOP; -GLGKIT IM; +MIRT15TA PO; -VLTG EXT
[2017-06-12 10:11] LABS: URINE APPEARANCE CLEAR (CLEAR); URINE BILIRUBIN NEG (NEG); URINE COLOR DK YELLOW; URINE EPITHELIAL CELL AUTO 20-30 /lpf (0-5); URINE NITRITE NEG (NEG); URINE SPECIFIC GRAVITY 1.021 (1.000-1.030); UROBILINOGEN NEG (NEG); ZZUR CULT IF INDIC CLEAN CATCH NO
[2017-06-12 10:34] LABS: MANUAL MICROSCOPIC REQUIRED? NO; REVIEW REQ? NO
== END | disposition home or self-care (01) ==
LOC: C.LABCC 09:19
PROVIDERS: ATTEND Internal Medicine
DX: C61 Malignant neoplasm of prostate (principal)

== ENCOUNTER → 2017-06-15 | Outpatient (CLI) | payer OTHER ==
[2017-06-15 11:09] LABS: PROSTATE SPECIFIC ANTIGEN 14.6 ng/ml (0.000-4.000)
== END ==
LOC: C.LABCC 09:37
PROVIDERS: ATTEND Internal Medicine
DX: R97.20 Elevated prostate specific antigen [PSA] (principal)

== ENCOUNTER → 2017-06-19 | Outpatient (CLI) | payer OTHER ==
[2017-06-19 10:19] LABS: CHOLESTEROL/HDL RATIO 2.6
[2017-06-19 10:38] LABS: ESTIMATED AVERAGE GLUCOSE 189 mg/dl; HA1C FLAG Normal (Normal)
== END ==
LOC: C.LABCC 09:23
PROVIDERS: ATTEND Internal Medicine
DX: E11.9 Type 2 diabetes mellitus without complications (principal)

== ENCOUNTER → 2017-06-28 | Outpatient (CLI) | payer OTHER ==
[2017-06-28 09:41] LABS: BASO % 0.6 %; BASO ABS # 0.06 K/uL (0-0.2); COMPLETE YES; EOS % 10.6 %; HEMATOCRIT 33.7 % (42-52); IG% 0.2 %; LYMPH % 31.9 %; LYMPH ABS # 3.18 K/uL (1.2-3.4); MEAN CELL VOLUME 101.2 fL (80-100); MEAN CORPUSCULAR HEMOGLOBIN 33.3 pg (25-34); MEAN CORPUSCULAR HGB CONC 32.9 g/dl (32-36); MEAN PLATELET VOLUME 9.3 fL (7.4-10.4); MONO % 11.3 %; NEUT % 45.4 %; PLATELET COUNT 477 K/uL (130-400); RED BLOOD COUNT 3.33 M/uL (4.7-6.1); WHITE BLOOD COUNT 9.97 K/uL (4.8-10.8)
[2017-06-28 10:18] LABS: BLOOD UREA NITROGEN 18 mg/dl (7-18); BUN/CREATININE RATIO 15.9 (10-20); CALCIUM 8.8 mg/dl (8.5-10.1); CARBON DIOXIDE 34 mmol/L (21-32); CHLORIDE 99 mmol/L (98-107); GLUCOSE 200 mg/dl (70-99); POTASSIUM 3.7 mmol/L (3.5-5.1); SODIUM 138 mmol/L (136-145)
== END ==
LOC: C.LABCC 09:23
PROVIDERS: ATTEND Internal Medicine
DX: L03.90 Cellulitis, unspecified (principal)

== ENCOUNTER → 2017-07-03 | Outpatient (CLI) | payer OTHER ==
[2017-07-03 09:42] LABS: HEMATOCRIT 36.1 % (42-52); MEAN CELL VOLUME 101.4 fL (80-100); MEAN CORPUSCULAR HEMOGLOBIN 32.3 pg (25-34); MEAN CORPUSCULAR HGB CONC 31.9 g/dl (32-36); MEAN PLATELET VOLUME 9.2 fL (7.4-10.4); PLATELET COUNT 518 K/uL (130-400); RED BLOOD COUNT 3.56 M/uL (4.7-6.1)
[2017-07-03 09:50] LABS: INR 1.1 (0.9-1.1); PROTHROMBIN TIME (PATIENT) 11.7 SECONDS (9.0-12.0)
--- NOTE | 2017-07-17 07:03 | CODING QUERY NO DIAGNOSIS ---
SUPPORTING DIAGNOSIS NEEDED A supporting diagnosis is required for the test/procedure performed on this patient in order for us to be reimbursed by the patient's insurance. Please provide a supporting diagnosis for the following test/procedure listed below next to the test name along with your signature. *If there is no additional diagnosis for this patient that would support the following test/procedure please document that below next to the test/procedure. Test(s)/Procedure(s) that require a supporting diagnosis: * CBC W/O DIFF DIAGNOSIS: * PT/INR DIAGNOSIS: Provider Signature: Date: Thank you Jacquelin Underwood [employer] Once completed, please kindly fax back to [phone] For questions please call [phone]
== END ==
LOC: C.LABCC 09:13
PROVIDERS: ATTEND Internal Medicine
DX: D64.9 Anemia, unspecified (principal); E56.1 Deficiency of vitamin K; N17.9 Acute kidney failure, unspecified

== ENCOUNTER → 2017-07-03 | Outpatient (CLI) | payer OTHER ==
[2017-07-03 19:04] LABS: URINE APPEARANCE CLEAR (CLEAR); URINE BILIRUBIN NEG (NEG); URINE COLOR YELLOW; URINE NITRITE NEG (NEG); UROBILINOGEN NEG (NEG)
[2017-07-03 19:11] LABS: MANUAL MICROSCOPIC REQUIRED? NO; REVIEW REQ? NO
== END ==
LOC: C.LABCC 17:54
PROVIDERS: ATTEND Internal Medicine
DX: N17.9 Acute kidney failure, unspecified (principal)

== ENCOUNTER → 2017-07-04 | Outpatient (CLI) | payer OTHER ==
[2017-07-04 09:06] LABS: INR 1.1 (0.9-1.1)
[2017-07-04 09:27] LABS: PROSTATE SPECIFIC ANTIGEN 16.8 ng/ml (0.000-4.000)
== END ==
LOC: C.LABCC 08:21
PROVIDERS: ATTEND Internal Medicine
DX: C61 Malignant neoplasm of prostate (principal); E56.1 Deficiency of vitamin K

== ENCOUNTER → 2017-08-08 | Outpatient (CLI) | payer OTHER ==
[2017-08-08 08:37] LABS: ALKALINE PHOSPHATASE 86 U/L (45-117); ALT/SGPT 7 U/L (12-78); AST/SGOT 13 U/L (15-37)
== END ==
LOC: C.LABCC 07:46
PROVIDERS: ATTEND Internal Medicine
DX: Z85.46 Personal history of malignant neoplasm of prostate (principal)

== ENCOUNTER → 2017-08-25 | Outpatient (CLI) | payer OTHER ==
[2017-08-25 09:56] LABS: ALKALINE PHOSPHATASE 80 U/L (45-117); ALT/SGPT 6 U/L (12-78); AST/SGOT 13 U/L (15-37)
== END ==
LOC: C.LABCC 08:57
PROVIDERS: ATTEND Internal Medicine
DX: R33.9 Retention of urine, unspecified (principal)

== ENCOUNTER → 2017-09-04 | Outpatient (CLI) | payer OTHER ==
[2017-09-04 08:37] LABS: URINE APPEARANCE TURBID (CLEAR); URINE BILIRUBIN NEG (NEG); URINE COLOR ORANGE; URINE EPITHELIAL CELL AUTO 0-5 /lpf (0-5); URINE NITRITE POS (NEG); URINE PH 7.5 (4.5-7.5); URINE SPECIFIC GRAVITY 1.015 (1.000-1.030); UROBILINOGEN NEG (NEG)
[2017-09-04 08:46] LABS: MANUAL MICROSCOPIC REQUIRED? NO; REVIEW REQ? YES; SULFASALICYLIC ACID POS (NEG)
== END ==
LOC: C.LABCC 07:42
PROVIDERS: ATTEND Internal Medicine
DX: R33.9 Retention of urine, unspecified (principal)